=== PATIENT | male | born 1965 | race Caucasian/White ===

== ENCOUNTER 2016-07-09 12:44 | Emergency (ER) | payer MEDICAID ==
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
[2016-07-09] MEDS ORDERED: VALIUM 10 MG/2 ML SYRINGE IV ONE (13:22)
[2016-07-09] MEDS ORDERED: VALIUM 10 MG/2 ML SYRINGE ONE (13:25)
[2016-07-09 14:17] LABS: BASOPHIL % 0.1 % (0.0-0.4); Eosinophil % 1.1 % (0.00-5.0); Lymphocytes % 38.1 % (24.0-44.0); Mean Cell Volume 88.1 fl (78-100); Mean Corpuscular Hemoglobin 29.4 pg (26-32); Monocytes % 9.7 % (0.0-12.0); Platelet Count 255 K/mm3 (150-450); Red Blood Count 4.77 M/mm3 (4.1-5.6); Red Cell Distribution Width 13.9 % (11.5-14.0); White Blood Count 7.2 K/mm3 (4.0-10.5)
[2016-07-09 14:21] LABS: ANION GAP 12.8 MEQ/L (5-15); BLOOD UREA NITROGEN 16 mg/dL (9-20); CHLORIDE 106 mEq/L (98-107); Carbon Dioxide 23.9 mEq/L (21-32); Glucose 113 MG/DL (70-110); Potassium 3.1 mEq/L (3.5-5.1); SODIUM 140 mEq/L (136-145)
[2016-07-09 14:27] LABS: Collection Type VOID
[2016-07-09 14:28] LABS: COMPLETE URINE MICROSCOPIC? YES; Ph 5.5 (5-6)
[2016-07-09] MEDS ORDERED: Sodium Chloride 0.9% 1000 ML 1,000 ML IV STA (14:34)
[2016-07-09] MEDS ORDERED: Sodium Chloride 0.9% 1000 ML 1,000 ML ONE (14:38)
[2016-07-09 14:47] LABS: Mucus MODERATE /HPF (NEGATIVE)
[2016-07-09] MEDS ORDERED: Klor Con 10 MEQ PO ONE ×2 (15:52→16:20)
[2016-07-09 16:50] VITALS: BP 155/83; PULSE 81; O2SAT 97
== END 2016-07-09 16:51 | disposition home or self-care (01) ==
LOC: ED 12:44
DX: F41.9 Anxiety disorder, unspecified (principal); E86.0 Dehydration; E87.6 Hypokalemia
CPT/HCPCS: 36415; 80048; 80307; 81000; 85025; 96360; 96374; 99284; J3360; A9270-GY

== ENCOUNTER 2017-05-19 19:37 | Emergency (ER) | payer OTHER ==
[2017-05-19] MEDS ORDERED: PROVENTIL 2.5 MG/3 ML NEB IH ONE ×2 (20:18→20:22)
[2017-05-19] MEDS ORDERED: solu-MEDROL 125 MG IV ONE (20:18)
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
[2017-05-19] MEDS ORDERED: solu-MEDROL 125 MG ONE (20:27)
[2017-05-19 21:23] LABS: Granulocyte Absolute (ANC) 2.62 (1.4-6.9); Hematocrit 40.6 % (42-50); Hemoglobin 13.4 gm/dl (12.5-18.0); Mean Cell Volume 92.3 fl (78-100); Mean Corpuscular Hemoglobin 30.5 pg (26-32); Mean Platelet Volume 9.4 fl (6-9.5); Platelet Count 151 K/mm3 (150-450); Red Cell Distribution Width 14.6 % (11.5-14.0); White Blood Count 5.8 K/mm3 (4.0-10.5)
[2017-05-19 21:39] LABS: ALBUMIN 2.9 g/dL (3.4-5.0); ALKALINE PHOSPHATASE 261 U/L (46-116); ANION GAP 16.3 MEQ/L (5-15); BLOOD UREA NITROGEN 9 mg/dL (9-20); CHLORIDE 104 mEq/L (98-107); Calcium 8.3 mg/dL (8.5-10.1); Carbon Dioxide 23.1 mEq/L (21-32); Creatinine 1 0.86 mg/dl (0.55-1.30); Glucose 103 MG/DL (70-110); NT PRO BNP 63 pg/ml (0-125); Potassium 3.9 mEq/L (3.5-5.1); SGOT/AST 36 U/L (15-37); SGPT/ALT 55 U/L (12-78); SODIUM 140 mEq/L (136-145); Total Protein 8.1 gm/dL (6.4-8.2)
[2017-05-19 21:50] LABS: INFLUENZA A NEGATIVE (NEGATIVE); INFLUENZA B NEGATIVE (NEGATIVE)
[2017-05-19 21:51] LABS: RESPIRATORY SYNCTIAL VIRUS POSITIVE (Negative)
[2017-05-19 22:02] LABS: BAND 1 % (0.0-2.0); Eosinophil 9 % (0.00-3.0); Lymphocytes 49 % (24-44); Monocyte 1 % (0.0-12.0); Neutrophils 40 % (36.-66.); Platelet Estimate NORMAL (NORMAL); Total Cells Counted 100
[2017-05-19] MEDS ORDERED: Robitussin AC Syrup Unit Dose Cup PO ONE (22:05)
[2017-05-19] MEDS ORDERED: Vibramycin 100 MG PO ONE (22:06)
[2017-05-19 22:08] VITALS: BP 133/87; PULSE 86
[2017-05-19] MEDS ORDERED: Vibramycin 100 MG ONE (22:10)
[2017-05-19] MEDS ORDERED: Robitussin AC Syrup Unit Dose Cup ONE (22:11)
[2017-05-19 22:13] VITALS: O2SAT 96
--- NOTE | 2017-05-20 09:13 | XRAY ---
Exam: CT of the chest without IV contrast from 05/19/2017. CTDI: 17.48 Comparison: CT of the chest with IV contrast from 04/12/2015. Indication: History of bad cough 3 days, had lymph node biopsy last week within lower neck, also had bronchoscopy on same day about a week ago. Patient also has history of testicular carcinoma 6 years ago. Technique: Non-IV contrast axial images were obtained through the chest without IV contrast. Reconstructed coronal and sagittal images were created and reviewed. Findings: The heart size is normal without pericardial effusion. I again see multiple mediastinal lymph nodes within the right paratracheal projection, AP window on the left, just to the left of the chelita, and within the subcarinal projection. The largest lymph node is seen within the subcarinal projection measuring 2.0 cm x 1.5 cm in cross section on axial image #29. In general, the size of the mediastinal lymph nodes has progressed some as compared to 04/12/2015. Correlate with recent lymph node biopsy. I believe there are some mild bilateral perihilar lymph nodes as well, although these are more difficult to discern without the benefit of IV contrast. No abnormal axillary lymphadenopathy is seen. The lung burkett reveal advanced emphysematous changes with some mild scattered bilateral linear scarring. A suture line is seen at the posterior left lung base representing no change. There are some granulomatous calcifications at the posterior margin of the right hilum as well as the posterior right lung base. Prior right lung infiltrate and air-fluid level within an adjacent bulla/bleb have resolved. I currently see no acute infiltrates or suspicious soft tissue lung nodularity. No pneumothorax or pleural effusion is seen. The central airways appear open. The upper abdomen reveals multiple mildly prominent lymph nodes near the root of the mesentery which are about the same or perhaps slightly more prominent as compared to the prior CT study. The adrenal glands appear unremarkable. The spleen is borderline enlarged measuring about 12.7 cm in length on coronal image #100. I believe this represents no significant change. The skeleton reveals no acute fracture or aggressive bone lesion. Lower dorsal kyphosis and moderate diffuse spondylosis within the visualized spine are seen. Impression: 1. Compared to the prior CT study of 04/12/2015, there is mild interval progression of prominent mediastinal and bilateral perihilar lymph nodes, the largest seen within the subcarinal region measuring 2.0 cm x 1.5 cm in cross section on the current study. Lymph nodes near the mesenteric root of the upper abdomen are about the same or perhaps slightly more prominent. 2. I see no other acute process within the chest. 3. However, I again note advanced pulmonary emphysema with some scattered linear scarring within each lung field, a suture line at the posterior left lung base, and several granulomatous calcifications on the right. There is also borderline splenomegaly.
== END 2017-05-19 22:20 | disposition home or self-care (01) ==
LOC: ED 19:37
DX: J40 Bronchitis, not specified as acute or chronic (principal); J21.9 Acute bronchiolitis, unspecified; J44.9 Chronic obstructive pulmonary disease, unspecified; B97.4 Respiratory syncytial virus as the cause of diseases classified elsewhere; Z79.899 Other long term (current) drug therapy
CPT/HCPCS: 36000; 36415; 71250; 80053; 83880; 85025; 87040; 87631; 94640; 99284; J2930; A9270-GY

== ENCOUNTER 2017-06-11 05:51 | Day surgery (SDC) | payer OTHER ==
[2017-06-11] MEDS ORDERED: DIPRIVAN 200 MG/20 ML IV ONE (05:52)
[2017-06-11] MEDS ORDERED: Ketamine HCl 50 MG/ML IV ONE (05:52)
[2017-06-11] MEDS ORDERED: Lactated Ringers 1,000 ML IV SCH (06:00)
[2017-06-11 08:35] VITALS: O2SAT 98
--- NOTE | 2017-06-11 08:53 | OP ---
SURGERY DATE/TIME: 06/11/2017721 PREOPERATIVE DIAGNOSIS: Screening exam. POSTOPERATIVE DIAGNOSIS: Normal colon. PROCEDURE: Colonoscopy. SURGEON: Dr. Coleman. ANESTHESIA: MAC. Medications given by anesthesia department. HISTORY: The patient is a 52 year-old white male presenting now for his first screening colonoscopy. He was appraised of the risks of the procedure including the risk of perforation, phlebitis, untoward reaction to medication, bleeding and missed lesions. The patient verbalized his understanding and desired to have the procedure performed. DESCRIPTION OF PROCEDURE: The patient was given the medications by the anesthesia department. He had continuous pulse oximetry, ECG monitoring, intermittent blood pressure monitoring and tidal CO2 monitoring during the examination. He was placed in the left lateral decubitus position. A digital rectal examination was performed and revealed normal anal sphincter tone, no masses and normal prostate. The flexible Olympus pediatric colonoscope was used to intubate the rectum. A view of the colon was developed sequentially to the cecum. Upon insertion and withdrawal, including a retroflex view in the rectum, no mucosal lesions were encountered. The scope was removed from the patient who tolerated the procedure well and was sent back to OP recovery in good condition. The prep was noted to be fair.
[2017-06-11 09:00] VITALS: BP 143/89; PULSE 67
== END 2017-06-11 08:50 | disposition home or self-care (01) ==
LOC: SDC 05:51
PROVIDERS: ATTEND Family Medicine
PROC: 0DJD8ZZ Inspection of Lower Intestinal Tract, Via Natural or Artificial Opening Endoscopic (ICD-10-PCS; principal; 2017-06-11)
DX: Z12.11 Encounter for screening for malignant neoplasm of colon (principal)
CPT/HCPCS: J2704

== ENCOUNTER 2018-04-16 21:59 | Inpatient (IN) | payer OTHER ==
[2018-04-16] MEDS ORDERED: Sodium Chloride 0.9% 1000 ML 1,000 ML IV STA (22:08)
[2018-04-16] MEDS ORDERED: Sodium Chloride 0.9% 1000 ML 1,000 ML ONE (22:32)
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
[2018-04-16] MEDS ORDERED: Hydromorphone 1 mg/ml Ampule IV ONE (23:16)
[2018-04-16] MEDS ORDERED: Zofran 4 MG/2 ML VIAL IV ONE (23:16)
[2018-04-16] MEDS ORDERED: Zofran 4 MG/2 ML VIAL ONE (23:28)
[2018-04-16] MEDS ORDERED: Hydromorphone 1 mg/ml Ampule ONE (23:28)
[2018-04-17] MEDS ORDERED: ENOXAPARIN SODIUM SQ STA (00:56)
[2018-04-17] MEDS ORDERED: ROCEPHIN 1 Gm-D5w 50 ml Bag** 1 G/50 ML IVPB IV STA (00:56)
[2018-04-17] MEDS ORDERED: Hydromorphone 1 mg/ml Ampule IV ONE ×2 (00:56→02:53)
[2018-04-17] MEDS ORDERED: Hydromorphone 1 mg/ml Ampule ONE ×2 (01:02→02:53)
[2018-04-17 01:03] LABS: BASOPHIL % 0.2 % (0.0-0.4); Basophil (Absolute #) 0.02 (0-0.4); Eosinophil % 0.8 % (0.00-5.0); Eosinophil (Absolute #) 0.09 (0-0.5); Granulocyte Absolute (ANC) 7.61 (1.4-6.9); Granulocytes % 70.6 % (36.0-66.0); Hematocrit 41.1 % (42-50); Hemoglobin 13.7 gm/dl (12.5-18.0); Lymphocyte (Absolute #) 2.42 (1.0-4.6); Lymphocytes % 22.4 % (24.0-44.0); Mean Cell Volume 87.1 fl (78-100); Mean Corpuscular Hgb Concent. 33.3 g/dl (32-36); Mean Platelet Volume 9.5 fl (6-9.5); Monocyte (Absolute #) 0.65 (0.0-1.3); Platelet Count 232 K/mm3 (150-450); Red Blood Count 4.72 M/mm3 (4.1-5.6); Red Cell Distribution Width 14.5 % (11.5-14.0); White Blood Count 10.8 K/mm3 (4.0-10.5)
[2018-04-17] MEDS ORDERED: ROCEPHIN 1 Gm-D5w 50 ml Bag** 1 G/50 ML IVPB IV ONE (01:03)
[2018-04-17] MEDS ORDERED: ENOXAPARIN SODIUM SQ ONE (01:03)
[2018-04-17 01:22] LABS: ALBUMIN 3.7 g/dL (3.5-5.0); ALKALINE PHOSPHATASE 170 U/L (38-126); ANION GAP 14.7 MEQ/L (5-15); BLOOD UREA NITROGEN 20 mg/dL (9-20); CHLORIDE 99 mmol/L (98-107); Calcium 8.3 mg/dL (8.4-10.2); Carbon Dioxide 25 mmol/L (22-30); Creatinine 1 0.79 mg/dL (0.66-1.25); Glucose 112 mg/dL (74-106); NT PRO BNP 45.8 pg/mL (0-900); Potassium 3.3 mmol/L (3.5-5.1); SGOT/AST 18 U/L (17-59); SGPT/ALT 17 U/L (0-50); SODIUM 135 mmol/L (137-145); Total Protein 7.5 g/dL (6.3-8.2)
[2018-04-17] MEDS ORDERED: Zofran 4 MG/2 ML VIAL IV PRN (03:02)
[2018-04-17] MEDS ORDERED: TYLENOL 325 MG PO PRN (03:02)
[2018-04-17] MEDS: Sodium Chloride 0.9% 1000 ML 1,000 ML IV SCH (04:25)
[2018-04-17 06:20] LABS: BASOPHIL % 0.2 % (0.0-0.4); Basophil (Absolute #) 0.02 (0-0.4); Eosinophil % 1.2 % (0.00-5.0); Eosinophil (Absolute #) 0.12 (0-0.5); Granulocyte Absolute (ANC) 5.72 (1.4-6.9); Granulocytes % 57.3 % (36.0-66.0); Hematocrit 42.3 % (42-50); Hemoglobin 14.1 gm/dl (12.5-18.0); Lymphocyte (Absolute #) 3.49 (1.0-4.6); Mean Cell Volume 86.7 fl (78-100); Mean Corpuscular Hemoglobin 28.9 pg (26-32); Mean Corpuscular Hgb Concent. 33.3 g/dl (32-36); Mean Platelet Volume 9.6 fl (6-9.5); Monocyte (Absolute #) 0.63 (0.0-1.3); Monocytes % 6.3 % (0.0-12.0); Platelet Count 255 K/mm3 (150-450); Red Blood Count 4.88 M/mm3 (4.1-5.6); Red Cell Distribution Width 14.5 % (11.5-14.0)
[2018-04-17 06:33] LABS: ALBUMIN 3.9 g/dL (3.5-5.0); ALKALINE PHOSPHATASE 170 U/L (38-126); ANION GAP 15.4 MEQ/L (5-15); BLOOD UREA NITROGEN 17 mg/dL (9-20); CHLORIDE 95 mmol/L (98-107); Calcium 8.3 mg/dL (8.4-10.2); Carbon Dioxide 25 mmol/L (22-30); Creatinine 1 0.78 mg/dL (0.66-1.25); Glucose 115 mg/dL (74-106); Potassium 3.6 mmol/L (3.5-5.1); SGOT/AST 17 U/L (17-59); SGPT/ALT 17 U/L (0-50); SODIUM 132 mmol/L (137-145); Total Protein 7.9 g/dL (6.3-8.2)
[2018-04-17] MEDS: DILAUDID 2 MG INJECTION IV PRN ×5 (07:38→21:29)
--- NOTE | 2018-04-17 07:53 | XRAY ---
Indication: Erythema and swelling. Two-dimensional sonogram and color Doppler imaging of the major venous vessels of the left and right leg was performed. Comparison: None Examination of the left leg demonstrates near occluding DVT in the distal femoral and popliteal veins. No other thrombus seen in the remaining deep venous vessels of the left and right leg including greater saphenous veins. Patent veins demonstrate normal compressibility. Venous waveforms are normal with and without augmentation. Impression: 1. DVT in the distal left femoral and popliteal veins. 2. Right leg negative for DVT. Comment: Preliminary report was given.
--- NOTE | 2018-04-17 07:58 | XRAY ---
Indication: Erythema and swelling. Cellulitis. Two-dimensional sonogram and color Doppler imaging of the major arteries of the left and right leg was performed. Comparison: None Examination of the left leg demonstrates patent common femoral, superficial femoral, popliteal, posterior tibial, and dorsal pedal arteries. Arterial waveforms are multiphasic throughout. Examination of the right leg also demonstrates patent common femoral, superficial femoral, popliteal, posterior tibial, and dorsal pedal arteries. Arterial waveforms are multiphasic throughout. Ankle brachial index portion of the exam not performed due to intolerable pain. Impression: Left and right leg arterial Doppler sonogram negative for critical stenosis/obstruction with normal multiphasic arterial waveforms. Comment: Preliminary report was given.
[2018-04-17] MEDS ORDERED: PHARMACY DOSING REQUIRED: VANCOMYCIN IV ONE (10:25)
[2018-04-17] MEDS: VANCOCIN 1 GM VIAL*** 1.75 GM in Sodium Chloride 0.9% 500 ML 500 ML IV SCH ×2 (11:22→21:29)
[2018-04-17] MEDS: ENOXAPARIN SODIUM SQ SCH (11:22)
[2018-04-17] MEDS: Advair Hfa 115/21 Common canister IH SCH (19:20)
--- NOTE | 2018-04-17 20:31 | XRAY ---
Indication: Elevated d-dimer. Multiple contiguous axial images obtained through the chest using 80 cc Isovue 370 contrast. Comparison: June 01, 2017. There is good opacification of the pulmonary arteries to include the lobar and segmental branches. Again no filling defect or pulmonary embolus. Heart is not enlarged. Aorta is normal in course and caliber. New left arm PICC line. Stable scattered small nonpathologic mediastinal lymph nodes. No pathologic lymphadenopathy. Examination of lung parenchyma again demonstrates diffuse pulmonary emphysema, scattered fibrosis/scarring, left base suture line, and posterior right lower lobe calcified granuloma. Minimal bilateral dependent atelectasis. No new pulmonary mass, infiltrate, or effusion. Bony thorax intact again with minimal degenerative changes throughout the spine. Limited upper abdomen demonstrates stomach markedly food/fluid distended. Stable mild fatty liver. There are again scattered small mesenteric root lymph nodes but smaller than before, largest measuring 11 x 26 mm. Impression: 1. Again negative pulmonary embolus. 2. Stable pulmonary emphysema, left lung postsurgical changes, scattered fibrosis/scarring, and evidence for old granulomatous disease. 3. No new/acute cardiopulmonary abnormalities. 4. Again incidental fatty liver and prominent mesenteric root lymph nodes. Comment: Preliminary interpretation was made by [facility] and no critical discrepancy. CTDI 21.37
--- NOTE | 2018-04-17 20:35 | XRAY ---
Indication: PICC line placement. Comparison: September 01, 2017. Portable chest demonstrates new left arm PICC line with the tip projecting over the SVC. Lungs remain underinflated with bibasilar atelectasis/scarring. Heart is not enlarged. Bony thorax intact again with mild degenerative changes. Impression: New left arm PICC line in good position with again bibasilar atelectasis/scarring. No acute cardiopulmonary abnormalities. Comment: Preliminary interpretation was made by [facility]. No discrepancy.
[2018-04-17] MEDS: ROCEPHIN 1 Gm-D5w 50 ml Bag** 1 G/50 ML IVPB IV SCH (21:30)
[2018-04-17] MEDS: REMERON 30 MG PO SCH (21:31)
[2018-04-17] MEDS ORDERED: Naprosyn 500 MG PO ONE (22:00)
[2018-04-17] MEDS: DOXEPIN HCL PO SCH (22:08)
[2018-04-18] MEDS: DILAUDID 2 MG INJECTION IV PRN ×2 (06:13→20:58)
[2018-04-18] MEDS ORDERED: PROVENTIL Solution 2.5 MG/0.5 ML IH SCH (07:00)
[2018-04-18] MEDS ORDERED: PROVENTIL COMMON CANISTER IH PRN (07:15)
[2018-04-18] MEDS ORDERED: MEDICATION INTERVENTION MC SCH (07:15)
[2018-04-18] MEDS: Spiriva 18 Mcg/Cap Inhaler IH SCH (07:56)
[2018-04-18] MEDS: Advair Hfa 115/21 Common canister IH SCH ×2 (07:56→17:07)
[2018-04-18] MEDS: Sodium Chloride 0.9% 1000 ML 1,000 ML IV SCH (08:39)
--- NOTE | 2018-04-18 09:00 | PCM.NOTE ---
Date and Time: 04/18/1856 Subjective Assessment: Pt still having LE edema and erythema. Legs hurt; he is unable to walk on them he says. Unsure if they're better since admission. - Review of Systems Constitutional: No Fever Skin: Cellulitis Objective Exam General Appearance: mild distress (with exam), alert Neurologic Exam: oriented x 3, cooperative Skin Exam: other (LE erythema distally bilat, R>L. There are dark red/black vesicles approx 4-5cm in diameter on distal LE bilat. pedal pulse easiliy palpable on L, unable to palpate on R. feet are warm bilat. LE ttp throughout.) Respiratory Exam: No normal breath sounds (fair air exchange bilat), No crackles /rales, No rhonchi, No wheezing Cardiovascular Exam: regular rate/rhythm, normal heart sounds, No murmur OBJECTIVE DATA Vital Signs: Vital Signs - 24 hr Temp Pulse Resp BP Pulse Ox 04/18/18 08:02 100 H 18 96 04/18/18 07:26 98.5 F 100 H 18 123/72 97 04/18/18 04:00 17 04/18/18 03:48 98.5 F 103 H 17 124/76 96 04/18/18 00:00 18 04/17/18 23:44 98.3 F 107 H 18 155/68 94 L 04/17/18 20:00 98.6 F 102 H 19 131/74 97 04/17/18 19:22 99 H 18 96 04/17/18 16:00 18 04/17/18 15:57 98.6 F 98 H 18 132/84 96 04/17/18 12:00 18 04/17/18 11:51 97.6 F 93 H 18 121/83 97 04/17/18 09:43 106 H 18 97 Oxygen-Last 24 hours O2 Percentage 2 Liters = 28% O2 Percentage 3 Liters = 32% O2 Percentage 3 Liters = 32% O2 Percentage 3 Liters = 32% O2 Percentage 3 Liters = 32% O2 Percentage 3 Liters = 32% Pain Assessment - Last Documented Pain Intensity 9 Pain Scale Used 0-10 Pain Scale Intake and Output: Intake & Output 04/15/18 04/16/18 04/17/18 04/18/18 11:59 11:59 11:59 11:59 Intake Total 1470 2699 Output Total 500 1525 Balance 970 1174 Weight 99.2 kg 100.5 kg Radiology Exams: Radiology Procedures Category Date Time Status ARTERIAL BILAT LOWER EXTREMITY [US] Stat Exams 04/16/18 22:09 Completed CHEST 1 VIEW (PORTABLE) Stat Exams 04/17/18 14:02 Completed CHEST WITH CONTRAST [CT] Routine Exams 04/17/18 10:25 Completed VENOUS BILATERAL EXTREMITY [US] Stat Exams 04/16/18 22:14 Completed Multi-Disciplinary Progress Notes: Multi-Disciplinary Progress Notes 04/17/18 10:38 Pharmacy Note by Doc Elias Pharmacokinetic dosing service Date: 04/17/18 Time: Objective: Patient: Floor: Age: 52 yo Serum creatinine: 0.78 mg/dL Height: 71 Inches Weight (kg): 99 Diagnosis:CELLULITIS Relevant medical/social history: Cultures and sensitivities: Other labs:VANCOMYCIN TROUGH 04/19/18 Assessment: IBW (kg): 75.30 Dosing wt(kg): 99 Estimated Creatinine clearance (ml/min): 118.0 CRCL method: Cockcroft and Gault using ibw(default). Drug selected: Vancomycin Loading dose (mg): 0 Vd (liters): 74.2 (factor used: 0.75 L/kg) Luis (hr-1): 0.102 Half life ( hrs): 6.80 Recommended dose: 1750 mg Interval: 12 hrs Infusion time (hrs): 1.5 Predicted peak (mcg/mL): 31.0 Predicted trough (mcg/mL): 10.62 Total body weight is being used for vancomycin dosing. Renal function is stable [ ] /unstable [ ] Recommendations: Give Vancomycin 1750 mg q 12 hrs with an expected Cpeak of 31.0 mcg/ml and an expected Ctrough of 10.62 mcg/ml Renal dosing of other antibiotics (review renal dosing of other medications and list guidelines here): Thank you for the consult, will continue to follow. Signature:VIMAL ELIAS R[facility] Initialized on 04/17/18 10:38 - END OF NOTE Assessment/Plan (1) Cellulitis Current Visit: Yes Status: Acute Onset Date: ~04/17/18 Qualifiers: Site of cellulitis: extremity Site of cellulitis of extremity: lower extremity Laterality: unspecified laterality Qualified Code(s): L03.119 - Cellulitis of unspecified part of limb Assessment & Plan: Bilat LE. On day #2 rocephin and vancomycin. PT to consult for the vesicles. Code(s): L03.90 - CELLULITIS, UNSPECIFIED (2) DVT (deep venous thrombosis) Current Visit: Yes Status: Acute Onset Date: ~04/17/18 Qualifiers: Chronicity: acute Laterality: left Assessment & Plan: On lovenox 100mg SQ q12h. Will change to po medication on discharge. Pt still having significant pain. Code(s): I82.409 - ACUTE EMBOLISM AND THOMBOS UNSP DEEP VN UNSP LOWER EXTREMITY (3) Venous stasis dermatitis Current Visit: Yes Status: Acute Onset Date: ~04/17/18 Qualifiers: Laterality: bilateral Qualified Code(s): I87.2 - Venous insufficiency ( chronic) (peripheral) Code(s): I87.2 - VENOUS INSUFFICIENCY (CHRONIC) (PERIPHERAL) (4) COPD (chronic obstructive pulmonary disease) Current Visit: No Status: Chronic Qualifiers: COPD type: unspecified COPD Qualified Code(s): J44.9 - Chronic obstructive pulmonary disease, unspecified Assessment & Plan: On O2 currently. (5) Hepatic cirrhosis due to chronic hepatitis C infection Current Visit: Yes Status: Acute Assessment & Plan: will d/c his tylenol order. Code(s): B18.2 - CHRONIC VIRAL HEPATITIS C; K74.60 - UNSPECIFIED CIRRHOSIS OF LIVER
[2018-04-18] MEDS: ENOXAPARIN SODIUM SQ SCH ×2 (09:49→21:18)
[2018-04-18] MEDS: VANCOCIN 1 GM VIAL*** 1.75 GM in Sodium Chloride 0.9% 500 ML 500 ML IV SCH ×2 (09:49→22:44)
[2018-04-18] MEDS: Oxycontin 10 MG ER PO SCH ×2 (09:49→22:44)
[2018-04-18] MEDS: Naprosyn 500 MG PO SCH (09:49)
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
[2018-04-18] MEDS: REMERON 30 MG PO SCH (21:18)
[2018-04-18] MEDS: DOXEPIN HCL PO SCH (21:18)
[2018-04-18] MEDS ORDERED: LURASIDONE HCL PO SCH (22:00)
[2018-04-18] MEDS: ROCEPHIN 1 Gm-D5w 50 ml Bag** 1 G/50 ML IVPB IV SCH (22:10)
[2018-04-19] MEDS: Advair Hfa 115/21 Common canister IH SCH ×2 (07:03→22:03)
[2018-04-19] MEDS: Spiriva 18 Mcg/Cap Inhaler IH SCH (07:03)
--- NOTE | 2018-04-19 09:07 | PCM.NOTE ---
Date and Time: 04/19/18 09 Subjective Assessment: He is still c/o leg pain, somewhat better with the oxycodone. PT drained the blood blisters yesterday but they have returned. He was not up walking yesterday. Objective Exam General Appearance: no apparent distress, alert Neurologic Exam: oriented x 3, cooperative Skin Exam: warm, other (bilat distal LE with erythema, L>R. There are dark vesicles present, with fluid. quite ttp throughout. Appears moderately edematous bilaterally.) OBJECTIVE DATA Vital Signs: Vital Signs - 24 hr Temp Pulse Resp BP Pulse Ox 04/19/18 08:00 98.5 F 93 H 18 113/63 93 L 04/19/18 04:00 98.5 F 98 H 12 124/68 96 04/19/18 00:00 99.4 F 105 H 12 125/61 95 04/18/18 20:00 98.6 F 96 H 12 149/80 97 04/18/18 17:10 95 H 18 95 04/18/18 16:00 97.8 F 93 H 18 124/78 97 04/18/18 12:00 16 04/18/18 11:57 98.4 F 97 H 18 139/80 99 Oxygen-Last 24 hours O2 Percentage 2 Liters = 28% O2 Percentage 3 Liters = 32% O2 Percentage 3 Liters = 32% O2 Percentage 3 Liters = 32% Pain Assessment - Last Documented Pain Intensity 4 Pain Scale Used [facility] Intake and Output: Intake & Output 04/16/18 04/17/18 04/18/18 04/19/18 11:59 11:59 11:59 11:59 Intake Total 1470 3179 3952 Output Total 500 1525 1200 Balance 970 1654 2752 Weight 99.2 kg 100.5 kg 107.1 kg Radiology Exams: Radiology Procedures Category Date Time Status CHEST 1 VIEW (PORTABLE) Stat Exams 04/17/18 14:02 Completed CHEST WITH CONTRAST [CT] Routine Exams 04/17/18 10:25 Completed Assessment/Plan (1) Cellulitis Current Visit: Yes Status: Acute Onset Date: ~04/17/18 Qualifiers: Site of cellulitis: extremity Site of cellulitis of extremity: lower extremity Laterality: unspecified laterality Qualified Code(s): L03.119 - Cellulitis of unspecified part of limb Assessment & Plan: Still present. On Vancomycin and rocephin day #3; will change the rocephin to levaquin. Code(s): L03.90 - CELLULITIS, UNSPECIFIED (2) DVT (deep venous thrombosis) Current Visit: Yes Status: Acute Onset Date: ~04/17/18 Qualifiers: Chronicity: acute Laterality: left Code(s): I82.409 - ACUTE EMBOLISM AND THOMBOS UNSP DEEP VN UNSP LOWER EXTREMITY (3) Venous stasis dermatitis Current Visit: Yes Status: Acute Onset Date: ~04/17/18 Qualifiers: Laterality: bilateral Qualified Code(s): I87.2 - Venous insufficiency ( chronic) (peripheral) Code(s): I87.2 - VENOUS INSUFFICIENCY (CHRONIC) (PERIPHERAL) (4) COPD (chronic obstructive pulmonary disease) Current Visit: No Status: Chronic Qualifiers: COPD type: unspecified COPD Qualified Code(s): J44.9 - Chronic obstructive pulmonary disease, unspecified Assessment & Plan: He states his breathing is at baseline. (5) Hepatic cirrhosis due to chronic hepatitis C infection Current Visit: Yes Status: Acute Assessment & Plan: He sees Dr. Ortega for Hep C. Code(s): B18.2 - CHRONIC VIRAL HEPATITIS C; K74.60 - UNSPECIFIED CIRRHOSIS OF LIVER
[2018-04-19] MEDS ORDERED: TROUGH DRUG LEVELS IJ ONE (09:30)
[2018-04-19] MEDS: Levofloxacin 500MG/100ML D5W 500 MG/100 ML BAG IV SCH (10:25)
[2018-04-19] MEDS: ENOXAPARIN SODIUM SQ SCH ×3 (10:25→23:16)
[2018-04-19] MEDS: Naprosyn 500 MG PO SCH (10:26)
[2018-04-19] MEDS: Oxycontin 10 MG ER PO SCH ×2 (10:26→23:18)
[2018-04-19] MEDS: VANCOCIN 1 GM VIAL*** 1.75 GM in Sodium Chloride 0.9% 500 ML 500 ML IV SCH ×2 (12:12→23:14)
[2018-04-19] MEDS: DILAUDID 2 MG INJECTION IV PRN ×2 (12:50→19:50)
[2018-04-19] MEDS: Sodium Chloride 0.9% 1000 ML 1,000 ML IV SCH (19:46)
[2018-04-19] MEDS: REMERON 30 MG PO SCH (23:18)
[2018-04-19] MEDS: DOXEPIN HCL PO SCH (23:20)
[2018-04-20] MEDS: DILAUDID 2 MG INJECTION IV PRN ×2 (02:20→23:57)
[2018-04-20] MEDS: Levofloxacin 500MG/100ML D5W 500 MG/100 ML BAG IV SCH (08:17)
[2018-04-20] MEDS: Naprosyn 500 MG PO SCH (08:17)
[2018-04-20] MEDS: ENOXAPARIN SODIUM SQ SCH ×2 (08:18→21:47)
[2018-04-20 08:33] LABS: BASOPHIL % 0.2 % (0.0-0.4); Basophil (Absolute #) 0.01 (0-0.4); Eosinophil (Absolute #) 0.15 (0-0.5); Granulocyte Absolute (ANC) 2.86 (1.4-6.9); Hematocrit 33.6 % (42-50); Hemoglobin 10.4 gm/dl (12.5-18.0); Lymphocyte (Absolute #) 1.65 (1.0-4.6); Lymphocytes % 33.5 % (24.0-44.0); Mean Cell Volume 92.6 fl (78-100); Mean Platelet Volume 9.7 fl (6-9.5); Monocyte (Absolute #) 0.26 (0.0-1.3); Monocytes % 5.3 % (0.0-12.0); Platelet Count 201 K/mm3 (150-450); Red Blood Count 3.63 M/mm3 (4.1-5.6); Red Cell Distribution Width 14.8 % (11.5-14.0); White Blood Count 4.9 K/mm3 (4.0-10.5)
[2018-04-20 08:36] LABS: Mean Corpuscular Hemoglobin 28.6 pg (26-32)
[2018-04-20] MEDS: Oxycontin 10 MG ER PO SCH (09:23)
[2018-04-20] MEDS: VANCOCIN 1 GM VIAL*** 1.75 GM in Sodium Chloride 0.9% 500 ML 500 ML IV SCH ×2 (09:23→21:48)
--- NOTE | 2018-04-20 09:30 | PCM.NOTE ---
Date and Time: 04/20/18924 Subjective Assessment: Still c/o leg pain. Got up just to pivot yesterday and took 2 steps then sat back down. Has not had a BM but thinks if he could sit on the toilet he may have one. Pain meds work for about 1 hour. Objective Exam General Appearance: no apparent distress, alert Neurologic Exam: oriented x 3, cooperative Skin Exam: other (LE wrapped from PT.) Respiratory Exam: diminished breath sounds (fair to good air exchange), wheezing (scattered throughout), No crackles/rales, No rhonchi Cardiovascular Exam: regular rate/rhythm, normal heart sounds, No murmur Gastrointestinal/Abdomen Exam: soft, normal bowel sounds, distention, No tenderness Extremity Exam: pedal edema (bilat) OBJECTIVE DATA Vital Signs: Vital Signs - 24 hr Temp Pulse Resp BP Pulse Ox 04/20/18 08:00 18 04/20/18 07:30 98.1 F 88 18 133/75 94 L 04/20/18 04:00 97.6 F 97 H 18 123/69 95 04/20/18 00:00 98.4 F 91 H 20 148/87 97 04/19/18 23:56 18 04/19/18 22:03 86 18 93 L 04/19/18 20:00 98.4 F 91 H 20 133/77 98 04/19/18 16:00 98.2 F 91 H 18 129/76 99 04/19/18 12:00 18 04/19/18 11:31 98.2 F 102 H 18 127/81 96 Oxygen-Last 24 hours O2 Percentage 2 Liters = 28% O2 Percentage 3 Liters = 32% O2 Percentage 3 Liters = 32% O2 Percentage 3 Liters = 32% O2 Percentage 3 Liters = 32% Pain Assessment - Last Documented Pain Intensity 6 Pain Scale Used 0-10 Pain Scale,FLACC Intake and Output: Intake & Output 04/17/18 04/18/18 04/19/18 04/20/18 11:59 11:59 11:59 11:59 Intake Total 1470 3179 4432 5449 Output Total 500 1525 1600 2010 Balance 970 1654 2832 3439 Weight 99.2 kg 100.5 kg 107.1 kg 111 kg Lab Results: Lab Results-Last 24 Hours 04/19/18 04/20/18 Range/Units 09:47 08:15 WBC 4.9 (4.0-10.5) K/mm3 RBC 3.63 L (4.1-5.6) M/mm3 Hgb 10.4 L (12.5-18.0) gm/dl Hct 33.6 L (42-50) % MCV 92.6 (78-100) fl MCH 28.6 (26-32) pg MCHC 31.0 L (32-36) g/dl RDW 14.8 H (11.5-14.0) % Plt Count 201 (150-450) K/mm3 MPV 9.7 H (6-9.5) fl Gran % 58.0 (36.0-66.0) % Eos # (Auto) 0.15 (0-0.5) Absolute Lymphs (auto) 1.65 (1.0-4.6) Absolute Monos (auto) 0.26 (0.0-1.3) Lymphocytes % 33.5 (24.0-44.0) % Monocytes % 5.3 (0.0-12.0) % Eosinophils % 3.0 (0.00-5.0) % Basophils % 0.2 (0.0-0.4) % Absolute Granulocytes 2.86 (1.4-6.9) Basophils # 0.01 (0-0.4) Vancomycin Trough 13.11 (10-20) ug/mL Radiology Exams: Radiology Procedures Category Date Time Status ECHO W/2D AND DOPPLER [US] Routine Exams 04/19/18 09:50 Taken Multi-Disciplinary Progress Notes: Multi-Disciplinary Progress Notes 04/19/18 17:43 Case Management Note by Mimi Bell S/W PT ABOUT ANY NEEDS HE MIGHT HAVE AT D/C. DISCUSSED POSSIBLE NEED FOR [facility]G WOUNDS. GIVEN LIST OF PROVIDERS AVAILABLE IN THE AREA. WILL CONT. TO FOLLOW. Initialized on 04/19/18 17:43 - END OF NOTE Assessment/Plan (1) Cellulitis Current Visit: Yes Status: Acute Onset Date: ~04/17/18 Qualifiers: Site of cellulitis: extremity Site of cellulitis of extremity: lower extremity Laterality: unspecified laterality Qualified Code(s): L03.119 - Cellulitis of unspecified part of limb Assessment & Plan: added levaquin yesterday. also on vancomycin day #4. Add IR oxycodone for his pain. No tylenol. Code(s): L03.90 - CELLULITIS, UNSPECIFIED (2) DVT (deep venous thrombosis) Current Visit: Yes Status: Acute Onset Date: ~04/17/18 Qualifiers: Chronicity: acute Laterality: left Assessment & Plan: on lovenox 1mg/kg SQ q12h now. Will change to po when he is closer to discharge. Code(s): I82.409 - ACUTE EMBOLISM AND THOMBOS UNSP DEEP VN UNSP LOWER EXTREMITY (3) Venous stasis dermatitis Current Visit: Yes Status: Acute Onset Date: ~04/17/18 Qualifiers: Laterality: bilateral Qualified Code(s): I87.2 - Venous insufficiency ( chronic) (peripheral) Code(s): I87.2 - VENOUS INSUFFICIENCY (CHRONIC) (PERIPHERAL) (4) COPD (chronic obstructive pulmonary disease) Current Visit: No Status: Chronic Qualifiers: COPD type: unspecified COPD Qualified Code(s): J44.9 - Chronic obstructive pulmonary disease, unspecified Assessment & Plan: pt notes he is at baseline. (5) Hepatic cirrhosis due to chronic hepatitis C infection Current Visit: Yes Status: Acute Code(s): B18.2 - CHRONIC VIRAL HEPATITIS C ; K74.60 - UNSPECIFIED CIRRHOSIS OF LIVER
[2018-04-20 09:48] LABS: ANION GAP 8.8 MEQ/L (5-15); BLOOD UREA NITROGEN 10 mg/dL (9-20); CHLORIDE 103 mmol/L (98-107); Carbon Dioxide 28 mmol/L (22-30); Creatinine 1 0.77 mg/dL (0.66-1.25); Glucose 126 mg/dL (74-106); Potassium 3.8 mmol/L (3.5-5.1); SODIUM 135 mmol/L (137-145)
[2018-04-20] MEDS ORDERED: Oxy-IR 5 MG PO SCH ×2 (10:00→13:00)
[2018-04-20] MEDS: Nicoderm CQ 21 MG TOP SCH (10:02)
[2018-04-20] MEDS ORDERED: Oxy-IR 5 MG PO PRN (10:30)
[2018-04-20] MEDS: Advair Hfa 115/21 Common canister IH SCH ×2 (10:34→17:47)
[2018-04-20] MEDS: Spiriva 18 Mcg/Cap Inhaler IH SCH (10:35)
[2018-04-20] MEDS: Sodium Chloride 0.9% 1000 ML 1,000 ML IV SCH (15:09)
[2018-04-20] MEDS: DOXEPIN HCL PO SCH (21:47)
[2018-04-20] MEDS: REMERON 30 MG PO SCH (21:48)
[2018-04-20] MEDS ORDERED: Oxycontin 20 MG ER PO SCH (22:00)
[2018-04-21] MEDS: Sodium Chloride 0.9% 1000 ML 1,000 ML IV SCH ×2 (04:06→22:05)
[2018-04-21] MEDS: Advair Hfa 115/21 Common canister IH SCH ×2 (07:08→17:29)
[2018-04-21] MEDS: Spiriva 18 Mcg/Cap Inhaler IH SCH (07:08)
[2018-04-21] MEDS ORDERED: NEURONTIN 300 MG PO ONE (08:40)
[2018-04-21] MEDS ORDERED: Colace 100 MG PO PRN (08:41)
--- NOTE | 2018-04-21 08:46 | PCM.NOTE ---
Date and Time: 04/21/18 08 Subjective Assessment: He is still having leg pain; the oxycodone doesn't help "at all" - he states the dilaudid only helps a little bit. He did get out of bed to the bathroom yesterday but still unable to have a BM. Leg pain currently 09/28. - Review of Systems Constitutional: No Fever Musculoskeletal: Other (leg/foot pain) Skin: Cellulitis Objective Exam General Appearance: no apparent distress, alert Neurologic Exam: oriented x 3, cooperative Skin Exam: other (bilat LE wiht generalized mod edema. There are dark macules scattered on LE, R>L. There are fewer areas of vesicles with decreased fluid. mild erythema distally.) OBJECTIVE DATA Vital Signs: Vital Signs - 24 hr Temp Pulse Resp BP Pulse Ox 04/21/18 07:29 98.1 F 91 H 16 128/69 96 04/21/18 07:25 89 14 96 04/21/18 04:00 97.7 F 94 H 18 124/70 96 04/21/18 00:00 97.9 F 95 H 18 135/80 97 04/20/18 20:45 96 04/20/18 20:00 97.5 F 86 17 133/77 97 04/20/18 17:48 82 18 96 04/20/18 16:00 98.6 F 84 18 127/78 97 04/20/18 12:00 98.4 F 90 18 152/88 94 L 04/20/18 10:36 88 18 94 L Oxygen-Last 24 hours O2 Percentage 3 Liters = 32% O2 Percentage 3 Liters = 32% O2 Percentage 3 Liters = 32% O2 Percentage 3 Liters = 32% O2 Percentage 3 Liters = 32% O2 Percentage 3 Liters = 32% Pain Assessment - Last Documented Pain Intensity 5 Pain Scale Used 0-10 Pain Scale,FLACC Intake and Output: Intake & Output 04/18/18 04/19/18 04/20/18 04/21/18 11:59 11:59 11:59 11:59 Intake Total 3935 4451 5435 3812 Output Total 1525 1600 2010 1225 Balance 1654 2832 3439 2587 Weight 100.5 kg 107.1 kg 111 kg 112.1 kg Lab Results: Lab Results-Last 24 Hours 04/20/18 Range/Units 08:15 Sodium 135 L (137-145) mmol/L Potassium 3.8 (3.5-5.1) mmol/L Chloride 103 (98-107) mmol/L Carbon Dioxide 28 (22-30) mmol/L Anion Gap 8.8 (5-15) MEQ/L BUN 10 (9-20) mg/dL Creatinine 0.77 (0.66-1.25) mg/dL Estimated GFR > 60.0 ML/MIN Glucose 126 H (74-106) mg/dL Calcium 8.0 L (8.4-10.2) mg/dL Radiology Exams: Radiology Procedures Category Date Time Status ECHO W/2D AND DOPPLER [US] Routine Exams 04/19/18 09:50 Taken Multi-Disciplinary Progress Notes: Multi-Disciplinary Progress Notes 04/20/18 15:05 Physical Therapy Note by Sherry Mishra LESIONS BOTH LEGS NOW BEGINNING TO DRY. LIGHT COMPRESSION DRESSING TO BOTH LEGS HELPFUL OVERNIGHT. TODAY HAVE KEPT LEGS GREASED WITH BARRIER OINTMENT TO AID SLOUGHING OF NON-VIABLE EPIDERMIS TO AVOID CREATING OPEN WOUNDS WITH AGGRESSIVE MECHANICAL DEBRIDEMENT. LEGS ARE SLOT OPERATIONS MANAGER WITH PALPATION BUT LESS WARM TO TOUCH, AND ERYTHEMA IS DIMINISHED. HOPEFUL TO BE ABLE TO APPLY LAYERED COMPRESSION DRESSING TOMORROW THAT PATIENT CAN TOLERATE AND THAT COULD STAY IN PLACE 1-3 DAYS. Initialized on 04/20/18 15:05 - END OF NOTE Assessment/Plan (1) Cellulitis Current Visit: Yes Status: Acute Onset Date: ~04/17/18 Qualifiers: Site of cellulitis: extremity Site of cellulitis of extremity: lower extremity Laterality: unspecified laterality Qualified Code(s): L03.119 - Cellulitis of unspecified part of limb Assessment & Plan: I think the cellulitis is gradually improving. on Vancomycin day #5 and levaquin day #3. Code(s): L03.90 - CELLULITIS, UNSPECIFIED (2) DVT (deep venous thrombosis) Current Visit: Yes Status: Acute Onset Date: ~04/17/18 Qualifiers: Chronicity: acute Laterality: left Assessment & Plan: on lovenox 1mg/kg SQ BID Code(s): I82.409 - ACUTE EMBOLISM AND THOMBOS UNSP DEEP VN UNSP LOWER EXTREMITY (3) Venous stasis dermatitis Current Visit: Yes Status: Acute Onset Date: ~04/17/18 Qualifiers: Laterality: bilateral Qualified Code(s): I87.2 - Venous insufficiency ( chronic) (peripheral) Code(s): I87.2 - VENOUS INSUFFICIENCY (CHRONIC) (PERIPHERAL) (4) COPD (chronic obstructive pulmonary disease) Current Visit: No Status: Chronic Qualifiers: COPD type: unspecified COPD Qualified Code(s): J44.9 - Chronic obstructive pulmonary disease, unspecified (5) Hepatic cirrhosis due to chronic hepatitis C infection Current Visit: Yes Status: Acute Code(s): B18.2 - CHRONIC VIRAL HEPATITIS C ; K74.60 - UNSPECIFIED CIRRHOSIS OF LIVER (6) Leg pain Current Visit: Yes Status: Acute Qualifiers: Laterality: bilateral Qualified Code(s): M79.604 - Pain in right leg; M79.605 - Pain in left leg Assessment & Plan: could be nerve pain; start gabapentin and stop oxycodone.
[2018-04-21] MEDS: Naprosyn 500 MG PO SCH (09:34)
[2018-04-21] MEDS: ENOXAPARIN SODIUM SQ SCH ×2 (09:34→22:09)
[2018-04-21] MEDS: Miralax Powder 17GM PACKET PO SCH (09:34)
[2018-04-21] MEDS: Nicoderm CQ 21 MG TOP SCH (09:34)
[2018-04-21] MEDS: DILAUDID 2 MG INJECTION IV PRN ×4 (09:34→22:48)
[2018-04-21] MEDS: Levofloxacin 500MG/100ML D5W 500 MG/100 ML BAG IV SCH (09:35)
[2018-04-21] MEDS: VANCOCIN 1 GM VIAL*** 1.75 GM in Sodium Chloride 0.9% 500 ML 500 ML IV SCH ×2 (11:25→22:48)
--- NOTE | 2018-04-21 11:28 | ECHO ---
DATE OF PROCEDURE: 04/19/2018 CLINICAL INFORMATION: Lower extremity edema. The M-mode 2D, and Doppler echocardiogram including color flow Doppler shows the left ventricle is normal in size at 5.4 cm. The apex is not well visualized secondary to poor apical window. The septal wall thickness is increased at 1.5 cm. The left ventricular posterior wall thickness is increased at 1.6 cm. There is accentuated contractility of the left ventricle. The ejection fraction is calculated to be 85%. The right ventricle is grossly normal. The left atrium is borderline dilated at 4.1 cm. The interatrial septum is intact. The right atrium is normal. The aortic valve opens well and is trileaflet. The mitral valve is grossly normal. The tricuspid valve is not well visualized. The pulmonic valve is not well visualized. The aortic root is normal at 3.2 cm. There is no pericardial effusion present. IMPRESSION: 1) ACCENTUATED CONTRACTILITY OF THE LEFT VENTRICLE. 2) BORDERLINE DILATED LEFT ATRIUM. 3) MILD TO MODERATE CONCENTRIC LEFT VENTRICULAR HYPERTROPHY.
[2018-04-21] MEDS: Protonix 20MG Tablet PO SCH (18:54)
[2018-04-21] MEDS: REMERON 30 MG PO SCH (22:08)
[2018-04-21] MEDS: DOXEPIN HCL PO SCH (22:09)
[2018-04-22] MEDS: DILAUDID 2 MG INJECTION IV PRN ×4 (03:33→23:48)
[2018-04-22] MEDS: Advair Hfa 115/21 Common canister IH SCH ×2 (07:03→19:47)
[2018-04-22] MEDS: Spiriva 18 Mcg/Cap Inhaler IH SCH (07:05)
[2018-04-22] MEDS ORDERED: Dulcolax 10 MG SUPP PR PRN (08:53)
[2018-04-22] MEDS ORDERED: TROUGH DRUG LEVELS IJ ONE (09:30)
[2018-04-22] MEDS: Levofloxacin 500MG/100ML D5W 500 MG/100 ML BAG IV SCH (09:52)
[2018-04-22] MEDS: Nicoderm CQ 21 MG TOP SCH (09:52)
[2018-04-22] MEDS: ENOXAPARIN SODIUM SQ SCH ×2 (09:52→22:52)
[2018-04-22] MEDS: Miralax Powder 17GM PACKET PO SCH (09:53)
[2018-04-22] MEDS: Naprosyn 500 MG PO SCH (09:54)
[2018-04-22] MEDS: Protonix 20MG Tablet PO SCH (09:54)
[2018-04-22] MEDS ORDERED: MORPHINE SULFATE 10 MG/ML IV PRN (10:14)
[2018-04-22] MEDS: VANCOCIN 1 GM VIAL*** 1.75 GM in Sodium Chloride 0.9% 500 ML 500 ML IV SCH ×2 (11:31→22:58)
--- NOTE | 2018-04-22 15:29 | PCM.NOTE ---
Date and Time: 04/22/18 1524 Subjective Assessment: Pt had a good night per nursing, was up to bathroom this morning. Legs had been re-wrapped yesterday by PT. He started neurontin 300mg once daily yesterday but he was unaware that he took a new pill (we discussed it yesterday) . He tells me this morning that it's been > 4 hours since his last dilaudid dose and the pain is 8/10 in his legs. He is open to going to [facility] on discharge. - Review of Systems Constitutional: No Fever Musculoskeletal: Other (leg pain) Objective Exam General Appearance: no apparent distress, alert Neurologic Exam: oriented x 3, cooperative Skin Exam: normal color, warm, dry, other (however, LE are wrapped bilat), No rash Respiratory Exam: lungs clear, wheezing (scattered, throughout), other (O2 per NC), No crackles/rales, No rhonchi Cardiovascular Exam: regular rate/rhythm, normal heart sounds, No tachycardia Back Exam: normal inspection, No rash OBJECTIVE DATA Vital Signs: Vital Signs - 24 hr Temp Pulse Resp BP Pulse Ox 04/22/18 12:00 98 F 95 H 20 132/73 94 L 04/22/18 08:00 18 04/22/18 07:45 97.7 F 96 H 18 141/73 95 04/22/18 07:05 94 H 18 95 04/22/18 04:00 98.5 F 102 H 18 119/80 95 04/21/18 23:48 98.3 F 93 H 20 119/61 95 04/21/18 23:37 18 04/21/18 20:00 97.9 F 88 18 126/72 96 04/21/18 17:31 83 20 96 04/21/18 16:00 97.8 F 89 22 140/89 95 Oxygen-Last 24 hours O2 Percentage 3 Liters = 32% O2 Percentage 3 Liters = 32% O2 Percentage 3 Liters = 32% O2 Percentage 3 Liters = 32% O2 Percentage 3 Liters = 32% O2 Percentage 3 Liters = 32% O2 Percentage 3 Liters = 32% Pain Assessment - Last Documented Pain Intensity 8 Pain Scale Used 0-10 Pain Scale Intake and Output: Intake & Output 04/20/18 04/21/18 04/22/18 04/23/18 11:59 11:59 11:59 11:59 Intake Total 5449 4052 4566 480 Output Total 2009 1949 2850 675 Balance 3439 2102 1716 -195 Weight 111 kg 112.1 kg 114.1 kg Lab Results: Lab Results-Last 24 Hours 04/22/18 Range/Units 09:40 Vancomycin Trough 12.73 (10-20) ug/mL Multi-Disciplinary Progress Notes: Multi-Disciplinary Progress Notes 04/22/18 08:07 Case Management Note by Brooke Bella LEVEL I WEB APPROVED, NO LEVEL II REQUIRED. LOC STILL ON QUEUE, CANNOT GO TO A FACILITY UNTIL THOSE HAVE BEEN APPROVED. Initialized on 04/22/18 08:07 - END OF NOTE 04/21/18 17:31 Physical Therapy Note by Sherry Mishra WAS ABLE TO APPLY LAYERED COMPRESSION DRESSINGS TO BOTH LE'S THIS A.M. WILL RE- ASSESS STATUS TOMORROW A.M. Initialized on 04/21/18 17:31 - END OF NOTE Assessment/Plan (1) Cellulitis Current Visit: Yes Status: Acute Onset Date: ~04/17/18 Qualifiers: Site of cellulitis: extremity Site of cellulitis of extremity: lower extremity Laterality: unspecified laterality Qualified Code(s): L03.119 - Cellulitis of unspecified part of limb Assessment & Plan: He is on day #6 of vancomycin and day #4 of levaquin. PT has been wrapping the legs. His days are up tomorrow; he is open to going to [facility] so discharge planning is calling to see where he can be placed (prefers [facility]). If that does not work, he may need to be discharged to home with home health. However, he is not walking much due to leg pain so would be much more appropriate at [facility]. My plan would be to discharge to [facility] on po levaquin, 500mg daily x 10d (14d total). Would also discharge on po blood thinner; discharge planning is seeing which thinners may be covered in the event he ends up going home (if goes to [facility], would send home on Eliquis 10mg 1 po BID x 1d (day #7 of blood thinner), then 5mg po BID. I have written an rx for oral morphine for him to try upon discharge (morphine sulfate IR 15mg 1 po QID prn, #16). Pain killers have been an issue since he cannot take tylenol due to his Hep C/cirrhosis. I tried oxycontin but his pain was persistent and he stated they didn't work at all. He will have to have close follow up if he is discharged to home so that he can get more pain medicine as appropriate. Code(s): L03.90 - CELLULITIS, UNSPECIFIED (2) DVT (deep venous thrombosis) Current Visit: Yes Status: Acute Onset Date: ~04/17/18 Qualifiers: Chronicity: acute Laterality: left Code(s): I82.409 - ACUTE EMBOLISM AND THOMBOS UNSP DEEP VN UNSP LOWER EXTREMITY (3) Venous stasis dermatitis Current Visit: Yes Status: Acute Onset Date: ~04/17/18 Qualifiers: Laterality: bilateral Qualified Code(s): I87.2 - Venous insufficiency ( chronic) (peripheral) Code(s): I87.2 - VENOUS INSUFFICIENCY (CHRONIC) (PERIPHERAL) (4) COPD (chronic obstructive pulmonary disease) Current Visit: No Status: Chronic Qualifiers: COPD type: unspecified COPD Qualified Code(s): J44.9 - Chronic obstructive pulmonary disease, unspecified Assessment & Plan: He has stated throughout his stay that his breathing is at baseline. He does have some wheezes today. on home O2. (5) Hepatic cirrhosis due to chronic hepatitis C infection Current Visit: Yes Status: Chronic Assessment & Plan: Sees Dr. Ortega. Code(s): B18.2 - CHRONIC VIRAL HEPATITIS C; K74.60 - UNSPECIFIED CIRRHOSIS OF LIVER (6) Leg pain Current Visit: Yes Status: Acute Qualifiers: Laterality: bilateral Qualified Code(s): M79.604 - Pain in right leg; M79.605 - Pain in left leg
[2018-04-22] MEDS: PROVENTIL 2.5 MG/3 ML NEB IH PRN (19:47)
[2018-04-22] MEDS: Sodium Chloride 0.9% 1000 ML 1,000 ML IV SCH (19:53)
[2018-04-22] MEDS: DOXEPIN HCL PO SCH (22:51)
[2018-04-22] MEDS: REMERON 30 MG PO SCH (22:52)
[2018-04-23] MEDS: DILAUDID 2 MG INJECTION IV PRN ×4 (06:20→21:12)
[2018-04-23] MEDS: Spiriva 18 Mcg/Cap Inhaler IH SCH (07:52)
[2018-04-23] MEDS: Advair Hfa 115/21 Common canister IH SCH ×2 (07:52→21:52)
[2018-04-23] MEDS: Protonix 20MG Tablet PO SCH (10:24)
[2018-04-23] MEDS: Miralax Powder 17GM PACKET PO SCH (10:24)
[2018-04-23] MEDS: Levofloxacin 500MG/100ML D5W 500 MG/100 ML BAG IV SCH (10:24)
[2018-04-23] MEDS: Naprosyn 500 MG PO SCH (10:24)
[2018-04-23] MEDS: ENOXAPARIN SODIUM SQ SCH ×2 (10:24→21:12)
[2018-04-23] MEDS: Nicoderm CQ 21 MG TOP SCH (10:25)
[2018-04-23] MEDS ORDERED: CITROMA 296 ML PO PRN (11:12)
[2018-04-23] MEDS: VANCOCIN 1 GM VIAL*** 1.75 GM in Sodium Chloride 0.9% 500 ML 500 ML IV SCH ×2 (11:29→21:13)
--- NOTE | 2018-04-23 11:39 | PCM.NOTE ---
Date and Time: 04/23/18 1114 Subjective Assessment: Patient reports no stool x 2 weeks. He states his abdomen is always distended. He states his leg pain started with the blood clot and both legs are infected. Patient has history of Hep C with type 1a diagnosed 08/04/17. Dr. Philippe's note says he has been seen by Dr. Ortega but it is unclear if this has been treated with antivirals at this time. - Review of Systems Constitutional: Other (Patient reports leg pain) Cardiac: No Symptoms Abdominal/Gastrointestinal: No Symptoms Genitourinary Symptoms: No Symptoms Musculoskeletal: Other (severe leg pain) Skin: Other (rash on legs) Additional Findings: ROS limited as patient asking for pain medication for his legs. Objective Exam General Appearance: mild distress, other (distress from pain in legs) Neurologic Exam: alert, cooperative, normal mood/affect Skin Exam: other (bilat legs wrapped from feet to below knees) Respiratory Exam: normal breath sounds, lungs clear, No crackles/rales, No rhonchi, No wheezing Cardiovascular Exam: regular rate/rhythm, normal heart sounds, No murmur, No friction rub, No gallop Gastrointestinal/Abdomen Exam: soft, normal bowel sounds, distention, No tenderness, No mass, No guarding OBJECTIVE DATA Vital Signs: Vital Signs - 24 hr Temp Pulse Resp BP Pulse Ox 04/23/18 08:02 82 18 96 04/23/18 08:00 97.7 F 82 18 154/85 96 04/23/18 04:05 98.7 F 90 16 139/90 97 04/23/18 00:17 98.0 F 96 H 20 149/102 97 04/23/18 00:00 20 04/22/18 20:00 97.8 F 96 H 20 139/88 96 04/22/18 19:47 91 H 18 93 L 04/22/18 16:00 88 17 144/85 94 L 04/22/18 12:00 98 F 95 H 20 132/73 94 L Oxygen-Last 24 hours O2 Percentage 3 Liters = 32% O2 Percentage 3 Liters = 32% O2 Percentage 3 Liters = 32% O2 Percentage 3 Liters = 32% O2 Percentage 3 Liters = 32% O2 Percentage 3 Liters = 32% Pain Assessment - Last Documented Pain Intensity 8 Pain Scale Used 0-10 Pain Scale Intake and Output: Intake & Output 04/21/18 04/22/18 04/23/18 04/24/18 06:59 06:59 06:59 06:59 Intake Total 3812 3103 5659 Output Total 1662 6982 4000 Balance 6810 650 0007 Weight 112.1 kg 114.1 kg 113.1 kg Multi-Disciplinary Progress Notes: Multi-Disciplinary Progress Notes 04/22/18 16:48 Case Management Note by Mimi Bell S/W DR. PHILIPPE ABOUT THE POSSIBILITY OF PT GOING HOME W/ [facility] TODAY. SHE STATED THAT SHE WOULD BE MORE COMFORTABLE IF WE COULD WAIT UNTIL WEDNESDAY TO BE BETTER PREPARED TO MEET ALL OF THE PT'S NEEDS. WE ARE STILL WAITING ON A FAX FROM DR. OTTO'S OFFICE SO THAT HIS PASSR PAPERS CAN BE COMPLETED. Initialized on 04/22/18 16:48 - END OF NOTE 04/22/18 16:41 Case Management Note by Mimi Bell STAFF FROM [facility] WERE HERE TO ASSESS THE PT. THEY STATED THAT THEIR FINANCIAL STAFF ARE GONE FOR THE WEEK AND WILL NOT BE BACK UNTIL WEDNESDAY SO DO NOT KNOW YET IF PT'S REHAB STAY AT [place] WOULD BE COVERED. Initialized on 04/22/18 16:41 - END OF NOTE 04/22/18 16:39 Case Management Note by Mimi Bell PX FOR ELEQUIS 10MG BID X 1 DAY, THEN 5MG BID QD CALLED INTO [facility] FOR DR. PHILIPPE. Initialized on 04/22/18 16:39 - END OF NOTE 04/22/18 16:03 Case Management Note by Brooke Bella Addendum entered by Brooke Bella 04/22/18 16:07: HEART RATE STILL ELEVATED AT 95 - 100, NO TEMP. B/P WNL. WBC NORMALIZED. Original Note: MR DENNIS ON DAY 6 OF VANC IV Q 12 HOURS AND DAY 4 OF LEVAQUIN IV DAILY. PHYSICAL THERAPY/WOUND CARE HAS BEEN WRAPPING THE LEGS, PAIN LEVEL STILL AT 8/10 , ON DILAUDID IV Q4H, CONT WHEEZING AND NEBS. WILL SEND FURTHER CLINICALS TO [facility] TO REQUEST MORE DAYS ACUTE TREATMENT PER MD. Initialized on 04/22/18 16:03 - END OF NOTE 04/22/18 15:54 Physical Therapy Note by Sherry Mishra PATIENT WAS ABLE TO AMBULATE IN [place] TODAY WITH ROLLER WALKER AND ARM HELD ASSIST +1 - APPROX 80'. IS TOLERATING UNNA BOOT COMPRESSION DRESSINGS - STATES HE IS AGREEABLE TO LEAVING THEM ON OVER THE WEEKEND. DRESSINGS SHOW NO SIGN OF DRAINAGE. HOPEFUL FOR IMPROVED EPIDERMAL SKIN CONDITION AFTER BARRIER OINTMENT AND ZINC WRAP CONDITIONING TX OVER 3 DAY PERIOD..... SHOULD THEN EASILY SLOUGH INJURED EPIDERMIS WITHOUT RAW TISSUE EXPOSURE. Initialized on 04/22/18 15:54 - END OF NOTE Assessment/Plan (1) Vasculitis Current Visit: Yes Status: Acute Assessment & Plan: Picture in his chart from 04/17/18 is very concerning for a vasculitis. He has history of Hep C which can be associated with leukocytoclastic vasculitis and mixed cryoglobulinemia syndrome. Will send off blood for cryoglobulins, complement C3 and C4 as well as CATALINO and Rheumatoid factor. Will try to obtain Dr. Ortega's records from his Hep C treatment. If testing does show vasculitis caused by cryoglobulinemia, may benefit from treatment for Hep C acutely or transfer to tertiary care center for immunosupression. He had arterial dopplers that were negative on admission. Will ask the nurses/PT to take more pictures of his legs when these are undressed. Will also check UA for hematuria and proteinuria. Will also check for HIV as this can also be associated with cryoglobulinemia. Code(s): I77.6 - ARTERITIS, UNSPECIFIED (2) DVT (deep venous thrombosis) Current Visit: Yes Status: Acute Onset Date: ~04/17/18 Qualifiers: Affected thrombotic vein of extremity: femoral Chronicity: acute Laterality: left Assessment & Plan: Continue lovenox at anticoagulation doses. Code(s): I82.409 - ACUTE EMBOLISM AND THOMBOS UNSP DEEP VN UNSP LOWER EXTREMITY (3) Cellulitis Current Visit: Yes Status: Acute Onset Date: ~04/17/18 Qualifiers: Site of cellulitis: extremity Site of cellulitis of extremity: lower extremity Laterality: unspecified laterality Qualified Code(s): L03.119 - Cellulitis of unspecified part of limb Assessment & Plan: Patient may have overlying cellulitis of vasculitis so will continue IV antibiotics at this time. Code(s): L03.90 - CELLULITIS, UNSPECIFIED (4) COPD (chronic obstructive pulmonary disease) Current Visit: No Status: Chronic Qualifiers: COPD type: unspecified COPD Qualified Code(s): J44.9 - Chronic obstructive pulmonary disease, unspecified (5) Constipation Current Visit: Yes Status: Acute Assessment & Plan: Start miralax scheduled. Schedule colace. Magnesium citrate prn today and also has suppository ordered as needed. Most likely due to IV pain medication. Code(s): K59.00 - CONSTIPATION, UNSPECIFIED
[2018-04-23] MEDS: Sodium Chloride 0.9% 1000 ML 1,000 ML IV SCH (13:27)
[2018-04-23 16:45] LABS: Appearance CLEAR (CLEAR); Bilirubin NEGATIVE (NEGATIVE); Blood SMALL Ery/ul (0-5); Glucose NEGATIVE (NEGATIVE); Ketones NEGATIVE (NEGATIVE); Leukocyte Esterase NEGATIVE (NEGATIVE); Mucus SLIGHT /HPF (NEGATIVE); Nitrite NEGATIVE (NEGATIVE); Protein,Urine Dip NEGATIVE (Negative); Specific Gravity 1.011 (1.005-1.025); Urobilinogen NEGATIVE mg/dL (0-1)
[2018-04-23] MEDS: REMERON 30 MG PO SCH (21:12)
[2018-04-23] MEDS: Colace 100 MG PO SCH (21:13)
[2018-04-23] MEDS: DOXEPIN HCL PO SCH (21:13)
[2018-04-24] MEDS: DILAUDID 2 MG INJECTION IV PRN ×6 (03:46→23:55)
[2018-04-24] MEDS: Advair Hfa 115/21 Common canister IH SCH ×2 (08:42→19:16)
[2018-04-24] MEDS: Spiriva 18 Mcg/Cap Inhaler IH SCH (08:43)
[2018-04-24] MEDS: Sodium Chloride 0.9% 1000 ML 1,000 ML IV SCH (09:17)
[2018-04-24] MEDS: Levofloxacin 500MG/100ML D5W 500 MG/100 ML BAG IV SCH (09:20)
[2018-04-24] MEDS: Nicoderm CQ 21 MG TOP SCH (09:20)
[2018-04-24] MEDS: Colace 100 MG PO SCH ×2 (09:20→21:45)
[2018-04-24] MEDS: Protonix 20MG Tablet PO SCH (09:22)
[2018-04-24] MEDS: ENOXAPARIN SODIUM SQ SCH ×2 (09:22→21:46)
[2018-04-24] MEDS: Miralax Powder 17GM PACKET PO SCH (09:22)
[2018-04-24] MEDS: VANCOCIN 1 GM VIAL*** 1.75 GM in Sodium Chloride 0.9% 500 ML 500 ML IV SCH ×2 (10:17→21:47)
[2018-04-24] MEDS: Naprosyn 500 MG PO SCH (10:17)
[2018-04-24] MEDS ORDERED: Colace 100 MG PO ONE (11:11)
--- NOTE | 2018-04-24 11:26 | PCM.NOTE ---
Date and Time: 04/24/18 1120 Subjective Assessment: He reports his leg pain started one week before he presented to the hospital when the purple/black discoloration of both of his legs started. He reports the pain is worse in his feet and toes and ankles. He reports he has Hep C and has been unable to obtain treatment for this although he has tried for over a year. He reports a stool yesterday and today after magnesium citrate was given yesterday. He denies any shortness of breath or chest pain. Nursing notes say he was able to ambulate in the [place] yesterday. - Review of Systems Constitutional: No Symptoms Eyes: No Symptoms Ears, Nose, & Throat: No Symptoms Respiratory: No Symptoms Cardiac: No Symptoms Abdominal/Gastrointestinal: No Symptoms Genitourinary Symptoms: No Symptoms Musculoskeletal: Other (feet and leg pain; leg wounds wrapped) Objective Exam General Appearance: no apparent distress, alert, obese Neurologic Exam: alert, cooperative, normal mood/affect Skin Exam: normal color, warm, dry, other (lower legs wrapped from toes to knees ) Respiratory Exam: normal breath sounds, lungs clear, No crackles/rales, No rhonchi, No wheezing Cardiovascular Exam: regular rate/rhythm, normal heart sounds, No murmur, No friction rub, No gallop Gastrointestinal/Abdomen Exam: soft, normal bowel sounds, No tenderness, No distention, No mass, No guarding Extremity Exam: other (no c/c/e) OBJECTIVE DATA Vital Signs: Vital Signs - 24 hr Temp Pulse Resp BP Pulse Ox 04/24/18 09:01 88 18 96 04/24/18 08:25 18 04/24/18 08:00 98.6 F 85 18 135/98 96 04/24/18 04:06 98.1 F 88 17 163/87 96 04/24/18 00:00 98.8 F 100 H 17 139/87 96 04/23/18 21:56 94 H 16 95 04/23/18 20:00 98.7 F 97 H 16 159/88 95 04/23/18 16:00 98.3 F 90 18 134/89 93 L 04/23/18 12:00 97.9 F 89 18 131/74 94 L Oxygen-Last 24 hours O2 Percentage 3 Liters = 32% O2 Percentage 3 Liters = 32% O2 Percentage 3 Liters = 32% O2 Percentage 3 Liters = 32% O2 Percentage 3 Liters = 32% O2 Percentage 3 Liters = 32% Pain Assessment - Last Documented Pain Intensity 7 Pain Scale Used 0-10 Pain Scale Intake and Output: Intake & Output 04/22/18 04/23/18 04/24/18 04/25/18 06:59 06:59 06:59 06:59 Intake Total 3103 5659 3372 Output Total 2875 4000 1725 Balance 228 1659 1647 Weight 114.1 kg 113.1 kg 111.9 kg Lab Results: Lab Results-Last 24 Hours 04/23/18 04/23/18 Range/Units 15:05 16:25 Urine Color YELLOW (YELLOW) Urine Appearance CLEAR (CLEAR) Urine pH 8.0 (5-6) Ur Specific [place] 1.011 (1.005-1.025) Urine Protein NEGATIVE (Negative) Urine Ketones NEGATIVE (NEGATIVE) Urine Blood SMALL (0-5) Domingo/ul Urine Nitrite NEGATIVE (NEGATIVE) Urine Bilirubin NEGATIVE (NEGATIVE) Urine Urobilinogen NEGATIVE (0-1) mg/dL Ur Leukocyte Esterase NEGATIVE (NEGATIVE) Urine WBC (Auto) 6-10 (0-5) /HPF Urine RBC (Auto) 11-15 (0-2) /HPF U Epithel Cells (Auto) NONE (FEW) /HPF Urine Mucus (Auto) SLIGHT (NEGATIVE) /HPF Urine Glucose NEGATIVE (NEGATIVE) mg/dL Rheumatoid Factor Scrn NEGATIVE (Negative) Multi-Disciplinary Progress Notes: Multi-Disciplinary Progress Notes 04/24/18 10:49 Case Management Note by Brooke Bella AT THIS TIME HAVE NOT RECEIVED A FAX FROM DR. OTTO'S OFFICE WITH DOCUMENTATION TO WHY PATIENT IS ON LATUDA, PASRR ON HOLD UNTIL THIS IS DONE. JAKUB STILL AWAITING APPROVAL FROM INSURANCE ALSO FOR ANY REHAB PLACEMENT. DR. JACK APPRISED OF SITUATION ON WEDNESDAY, AND WILL REASSESS ON WEDNESDAY. DR VIZCAINO ALSO AWARE. 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 I ordered send out tests for complement and cryloglobulins yesterday. He may need to has specialized care for treatment if he does have this type of vasculitis. Often requires immunospression and also treatment of Hep C if the lab tests confirm that this is the kind of vasculitis that he has. It could also be biopsied. Code(s): I77.6 - ARTERITIS, UNSPECIFIED (2) DVT (deep venous thrombosis) Current Visit: Yes Status: Acute Onset Date: ~04/17/18 Qualifiers: Affected thrombotic vein of extremity: femoral Chronicity: acute Laterality: left Assessment & Plan: Continue lovenox. Dr. Walker, patient's pcp, will decide on termite control servicer therapy for DVT. Code(s): I82.409 - ACUTE EMBOLISM AND THOMBOS UNSP DEEP VN UNSP LOWER EXTREMITY (3) Cellulitis Current Visit: Yes Status: Acute Onset Date: ~04/17/18 Qualifiers: Site of cellulitis: extremity Site of cellulitis of extremity: lower extremity Laterality: unspecified laterality Qualified Code(s): L03.119 - Cellulitis of unspecified part of limb Assessment & Plan: He may have infection of vasculitis. Will continue IV antibiotics. I have asked for new pictures to chart when dressing change is done. Code(s): L03.90 - CELLULITIS, UNSPECIFIED (4) COPD (chronic obstructive pulmonary disease) Current Visit: No Status: Chronic Qualifiers: COPD type: unspecified COPD Qualified Code(s): J44.9 - Chronic obstructive pulmonary disease, unspecified Assessment & Plan: Well controlled. Continue home medications. (5) Constipation Current Visit: Yes Status: Acute Assessment & Plan: Better after receiving magnesium citrate. Continue colace and miralax to prevent constipation. Code(s): K59.00 - CONSTIPATION, UNSPECIFIED
[2018-04-24] MEDS: DOXEPIN HCL PO SCH (21:45)
[2018-04-24] MEDS: REMERON 30 MG PO SCH (21:46)
[2018-04-24 23:34] LABS: COMPLEMENT C3 221 mg/dL (88-201); COMPLEMENT C4 36 mg/dL (10-40)
[2018-04-25 01:32] LABS: HIV Antigen/Antibody Combo Non Reactive (Non Reactive)
[2018-04-25] MEDS: DILAUDID 2 MG INJECTION IV PRN (04:09)
[2018-04-25] MEDS: Sodium Chloride 0.9% 1000 ML 1,000 ML IV SCH (06:01)
[2018-04-25] MEDS: Advair Hfa 115/21 Common canister IH SCH ×2 (07:02→20:40)
[2018-04-25] MEDS: Spiriva 18 Mcg/Cap Inhaler IH SCH (07:02)
--- NOTE | 2018-04-25 09:01 | PCM.NOTE ---
Date and Time: 04/25/1857 Subjective Assessment: Pt's pain is better in the legs this morning, 4-5/10. Walked to the nurses' station yesterday. Still on IV dilaudid for pain. States that his pain is in the ankles and feet/toes, although he indicates that his pain starts in the distal pretibial area. - Review of Systems Constitutional: No Fever Musculoskeletal: Other (foot pain bilat) Objective Exam General Appearance: no apparent distress, alert Neurologic Exam: oriented x 3, cooperative Skin Exam: other (legs wrapped bilat) OBJECTIVE DATA Vital Signs: Vital Signs - 24 hr Temp Pulse Resp BP Pulse Ox 04/25/18 07:23 98.5 F 88 18 152/97 97 04/25/18 07:06 86 20 94 L 04/25/18 04:00 99.1 F 94 H 22 175/90 96 04/25/18 00:18 99.1 F 104 H 20 135/85 95 04/25/18 00:00 20 04/24/18 20:00 20 04/24/18 19:35 98.5 F 91 H 20 155/103 96 04/24/18 19:16 91 H 15 94 L 04/24/18 16:00 98.3 F 87 18 152/87 92 L 04/24/18 12:00 18 04/24/18 11:44 97.8 F 96 H 18 136/86 97 04/24/18 09:01 88 18 96 Oxygen-Last 24 hours O2 Percentage 3 Liters = 32% O2 Percentage 3 Liters = 32% O2 Percentage 3 Liters = 32% O2 Percentage 3 Liters = 32% O2 Percentage 3 Liters = 32% O2 Percentage 3 Liters = 32% Pain Assessment - Last Documented Pain Intensity 8 Pain Scale Used [facility] Intake and Output: Intake & Output 04/22/18 04/23/18 04/24/18 04/25/18 11:59 11:59 11:59 11:59 Intake Total 4566 3956 3372 3326 Output Total 2850 3300 1725 3980 Balance 5533 063 8529 -654 Weight 114.1 kg 113.1 kg 111.9 kg 99.2 kg Lab Results: Lab Results-Last 24 Hours 04/23/18 04/23/18 Range/Units 15:05 15:05 CATALINO IgG Screen Pending Complement C3 221 H (88-201) mg/dL Complement C4 36 (10-40) mg/dL HIV Ag/Ab Combo Qual Non Reactive (Non Reactive) HIV Ag/Ab Interpret See Result Note: Multi-Disciplinary Progress Notes: Multi-Disciplinary Progress Notes 04/24/18 10:49 Case Management Note by Brooke Bella AT THIS TIME HAVE NOT RECEIVED A FAX FROM DR. OTTO'S OFFICE WITH DOCUMENTATION TO WHY PATIENT IS ON LATUDA, PASRR ON HOLD UNTIL THIS IS DONE. JAKUB STILL AWAITING APPROVAL FROM INSURANCE ALSO FOR ANY REHAB PLACEMENT. DR. JACK APPRISED OF SITUATION ON WEDNESDAY, AND WILL REASSESS ON WEDNESDAY. DR VIZCAINO ALSO AWARE. Initialized on 04/24/18 10:49 - END OF NOTE Assessment/Plan (1) Vasculitis Current Visit: Yes Status: Acute Assessment & Plan: labs are pending. Code(s): I77.6 - ARTERITIS, UNSPECIFIED (2) Cellulitis Current Visit: Yes Status: Acute Onset Date: ~04/17/18 Qualifiers: Site of cellulitis: extremity Site of cellulitis of extremity: lower extremity Laterality: unspecified laterality Qualified Code(s): L03.119 - Cellulitis of unspecified part of limb Assessment & Plan: Finishing up IV vancomycin and levaquin; may be able to d/c those today based on pictures that will be taken by PT later on. Code(s): L03.90 - CELLULITIS, UNSPECIFIED (3) DVT (deep venous thrombosis) Current Visit: Yes Status: Acute Onset Date: ~04/17/18 Qualifiers: Affected thrombotic vein of extremity: femoral Chronicity: acute Laterality: left Code(s): I82.409 - ACUTE EMBOLISM AND THOMBOS UNSP DEEP VN UNSP LOWER EXTREMITY (4) Venous stasis dermatitis Current Visit: Yes Status: Acute Onset Date: ~04/17/18 Qualifiers: Laterality: bilateral Qualified Code(s): I87.2 - Venous insufficiency ( chronic) (peripheral) Code(s): I87.2 - VENOUS INSUFFICIENCY (CHRONIC) (PERIPHERAL) (5) COPD (chronic obstructive pulmonary disease) Current Visit: No Status: Chronic Qualifiers: COPD type: unspecified COPD Qualified Code(s): J44.9 - Chronic obstructive pulmonary disease, unspecified (6) Hepatic cirrhosis due to chronic hepatitis C infection Current Visit: Yes Status: Chronic Assessment & Plan: He says it's been at least 6 mo since he saw Dr. Ortega - will have him seen outpatient after discharge. Code(s): B18.2 - CHRONIC VIRAL HEPATITIS C; K74.60 - UNSPECIFIED CIRRHOSIS OF LIVER
[2018-04-25] MEDS: ENOXAPARIN SODIUM SQ SCH ×2 (10:06→21:26)
[2018-04-25] MEDS: Colace 100 MG PO SCH ×2 (10:06→21:25)
[2018-04-25] MEDS: Miralax Powder 17GM PACKET PO SCH ×2 (10:06→11:28)
[2018-04-25] MEDS: Levofloxacin 500MG/100ML D5W 500 MG/100 ML BAG IV SCH (10:07)
[2018-04-25] MEDS: Naprosyn 500 MG PO SCH (10:07)
[2018-04-25] MEDS: Protonix 20MG Tablet PO SCH (10:07)
[2018-04-25] MEDS: MSIR 15 MG PO PRN ×4 (10:08→23:02)
[2018-04-25] MEDS: Nicoderm CQ 21 MG TOP SCH (10:08)
[2018-04-25] MEDS: VANCOCIN 1 GM VIAL*** 1.75 GM in Sodium Chloride 0.9% 500 ML 500 ML IV SCH ×2 (11:21→21:27)
[2018-04-25] MEDS ORDERED: NEURONTIN 300 MG PO ONE (16:00)
[2018-04-25] MEDS: REMERON 30 MG PO SCH (21:25)
[2018-04-25] MEDS: DOXEPIN HCL PO SCH (21:27)
[2018-04-26] MEDS: MSIR 15 MG PO PRN ×4 (05:00→23:49)
[2018-04-26] MEDS: Sodium Chloride 0.9% 1000 ML 1,000 ML IV SCH ×2 (05:00→23:49)
[2018-04-26] MEDS: Advair Hfa 115/21 Common canister IH SCH ×2 (06:53→19:23)
[2018-04-26] MEDS: Spiriva 18 Mcg/Cap Inhaler IH SCH (06:53)
[2018-04-26 08:56] LABS: BASOPHIL % 0.2 % (0.0-0.4); Basophil (Absolute #) 0.01 (0-0.4); Eosinophil % 1.6 % (0.00-5.0); Eosinophil (Absolute #) 0.07 (0-0.5); Granulocyte Absolute (ANC) 3.29 (1.4-6.9); Granulocytes % 73.1 % (36.0-66.0); Hematocrit 34.2 % (42-50); Hemoglobin 10.7 gm/dl (12.5-18.0); Lymphocyte (Absolute #) 0.85 (1.0-4.6); Lymphocytes % 18.9 % (24.0-44.0); Mean Cell Volume 92.7 fl (78-100); Mean Corpuscular Hgb Concent. 31.3 g/dl (32-36); Mean Platelet Volume 9.1 fl (6-9.5); Monocyte (Absolute #) 0.28 (0.0-1.3); Monocytes % 6.2 % (0.0-12.0); Platelet Count 186 K/mm3 (150-450); Red Blood Count 3.69 M/mm3 (4.1-5.6); White Blood Count 4.5 K/mm3 (4.0-10.5)
[2018-04-26] MEDS: Levofloxacin 500MG/100ML D5W 500 MG/100 ML BAG IV SCH (09:06)
[2018-04-26] MEDS: ENOXAPARIN SODIUM SQ SCH ×2 (09:07→21:54)
[2018-04-26] MEDS: NEURONTIN 300 MG PO SCH ×2 (09:07→21:53)
[2018-04-26] MEDS: Nicoderm CQ 21 MG TOP SCH (09:07)
[2018-04-26] MEDS: Naprosyn 500 MG PO SCH (09:07)
[2018-04-26] MEDS: Miralax Powder 17GM PACKET PO SCH (09:07)
[2018-04-26] MEDS: Protonix 20MG Tablet PO SCH (09:07)
[2018-04-26] MEDS: Colace 100 MG PO SCH ×2 (09:07→21:54)
[2018-04-26 09:08] LABS: Mean Corpuscular Hemoglobin 28.9 pg (26-32)
[2018-04-26 09:32] LABS: ALBUMIN 3.4 g/dL (3.5-5.0); ALKALINE PHOSPHATASE 214 U/L (38-126); ANION GAP 11.4 MEQ/L (5-15); BLOOD UREA NITROGEN 11 mg/dL (9-20); CHLORIDE 99 mmol/L (98-107); Calcium 8.7 mg/dL (8.4-10.2); Carbon Dioxide 31 mmol/L (22-30); Creatinine 1 0.78 mg/dL (0.66-1.25); Glucose 118 mg/dL (74-106); Potassium 4.5 mmol/L (3.5-5.1); SGOT/AST 25 U/L (17-59); SGPT/ALT 24 U/L (0-50); SODIUM 137 mmol/L (137-145); Total Protein 6.9 g/dL (6.3-8.2)
[2018-04-26] MEDS: VANCOCIN 1 GM VIAL*** 1.75 GM in Sodium Chloride 0.9% 500 ML 500 ML IV SCH ×2 (10:50→21:54)
[2018-04-26 12:42] LABS: ANA IgG Screen Positive (Neg. at 1:80); ANA Pattern Speckled
[2018-04-26 13:27] LABS: ANA Pattern Interp Detail See Result Note:
[2018-04-26] MEDS: DOXEPIN HCL PO SCH (21:53)
[2018-04-26] MEDS: REMERON 30 MG PO SCH (21:53)
--- NOTE | 2018-04-26 22:00 | PCM.NOTE ---
Date and Time: 04/26/182153 Subjective Assessment: Late entry for 04/26/18 0830: His pain is better with the morphine IR 30mg. He did not get up and walk yesterday due to pain/pain meds being adjusted. - Review of Systems Constitutional: No Fever Musculoskeletal: Other (foot/ankle pain) Objective Exam General Appearance: no apparent distress, alert Neurologic Exam: oriented x 3, cooperative Skin Exam: warm, dry, No rash Ears, Nose, Throat Exam: moist mucous membranes Respiratory Exam: lungs clear, diminished breath sounds, No crackles/rales, No rhonchi, No wheezing Cardiovascular Exam: regular rate/rhythm, normal heart sounds, No murmur Extremity Exam: other (Legs without erythema bilaterally. There are red/purple macules scattered over LE, R>L) Back Exam: normal inspection, No rash OBJECTIVE DATA Vital Signs: Vital Signs - 24 hr Temp Pulse Resp BP Pulse Ox 04/26/18 19:26 96 H 18 91 L 04/26/18 19:16 99.2 F 97 H 22 128/76 96 04/26/18 16:19 98 F 94 H 20 117/69 93 L 04/26/18 11:39 98.6 F 98 H 18 134/84 95 04/26/18 08:00 98.9 F 91 H 18 139/93 95 04/26/18 06:59 78 18 96 04/26/18 04:00 98.6 F 87 21 142/86 94 L 04/26/18 00:00 98.3 F 88 14 135/84 95 Oxygen-Last 24 hours O2 Percentage 3 Liters = 32% O2 Percentage 3 Liters = 32% O2 Percentage 3 Liters = 32% O2 Percentage 3 Liters = 32% O2 Percentage 3 Liters = 32% Pain Assessment - Last Documented Pain Intensity 5 Pain Scale Used 0-10 Pain Scale Intake and Output: Intake & Output 04/24/18 04/25/18 04/26/18 04/27/18 11:59 11:59 11:59 11:59 Intake Total 3372 3326 3432 1847 Output Total 1725 5030 2500 1950 Balance 1647 -1704 932 -103 Weight 111.9 kg 108.1 kg 110.1 kg Lab Results: Lab Results-Last 24 Hours 02/02/19 02/05/19 02/05/19 Range/Units 15:05 07:35 09:00 WBC 4.5 (4.0-10.5) K/mm3 RBC 3.69 L (4.1-5.6) M/mm3 Hgb 10.7 L (12.5-18.0) gm/dl Hct 34.2 L (42-50) % MCV 92.7 (78-100) fl MCH 28.9 (26-32) pg MCHC 31.3 L (32-36) g/dl RDW 15.0 H (11.5-14.0) % Plt Count 186 (150-450) K/mm3 MPV 9.1 (6-9.5) fl Gran % 73.1 H (36.0-66.0) % Eos # (Auto) 0.07 (0-0.5) Absolute Lymphs (auto) 0.85 L (1.0-4.6) Absolute Monos (auto) 0.28 (0.0-1.3) Lymphocytes % 18.9 L (24.0-44.0) % Monocytes % 6.2 (0.0-12.0) % Eosinophils % 1.6 (0.00-5.0) % Basophils % 0.2 (0.0-0.4) % Absolute Granulocytes 3.29 (1.4-6.9) Basophils # 0.01 (0-0.4) Sodium 137 (137-145) mmol/L Potassium 4.5 (3.5-5.1) mmol/L Chloride 99 (98-107) mmol/L Carbon Dioxide 31 H (22-30) mmol/L Anion Gap 11.4 (5-15) MEQ/L BUN 11 (9-20) mg/dL Creatinine 0.78 (0.66-1.25) mg/dL Estimated GFR > 60.0 ML/MIN Glucose 118 H (74-106) mg/dL Calcium 8.7 (8.4-10.2) mg/dL Total Bilirubin 0.50 (0.2-1.3) mg/dL AST 25 (17-59) U/L ALT 24 (0-50) U/L Alkaline Phosphatase 214 H (38-126) U/L Serum Total Protein 6.9 (6.3-8.2) g/dL Albumin 3.4 L (3.5-5.0) g/dL CAT[facility] IgG Screen Positive H (Neg. at 1:80) CAT[facility] IgG Titer 1:320 H (Not Indicated) titer CATALINO Pattern Speckled CATALINO Interpretation See Result Note: Assessment/Plan (1) Vasculitis Current Visit: Yes Status: Acute Assessment & Plan: possible. Labs pending. He is following up with Dr. Ortega in 2 days. Leg pain is still severe. He is on gabapentin. Would like to wean off the morphine over the next few weeks. He can't use any tylenol due to his hepatitis/ cirrhosis. Code(s): I77.6 - ARTERITIS, UNSPECIFIED (2) Cellulitis Current Visit: Yes Status: Acute Onset Date: ~04/17/18 Qualifiers: Site of cellulitis: extremity Site of cellulitis of extremity: lower extremity Laterality: unspecified laterality Qualified Code(s): L03.119 - Cellulitis of unspecified part of limb Assessment & Plan: Will d/c IV antibiotics after today. Has received 10d of IV antibiotics. Will rx doxycycline for 4 more days. Code(s): L03.90 - CELLULITIS, UNSPECIFIED (3) DVT (deep venous thrombosis) Current Visit: Yes Status: Acute Onset Date: ~04/17/18 Qualifiers: Affected thrombotic vein of extremity: femoral Chronicity: acute Laterality: left Assessment & Plan: Will be on xarelto after discharge. Code(s): I82.409 - ACUTE EMBOLISM AND THOMBOS UNSP DEEP VN UNSP LOWER EXTREMITY (4) Venous stasis dermatitis Current Visit: Yes Status: Acute Onset Date: ~04/17/18 Qualifiers: Laterality: bilateral Qualified Code(s): I87.2 - Venous insufficiency ( chronic) (peripheral) Code(s): I87.2 - VENOUS INSUFFICIENCY (CHRONIC) (PERIPHERAL) (5) COPD (chronic obstructive pulmonary disease) Current Visit: No Status: Chronic Qualifiers: COPD type: unspecified COPD Qualified Code(s): J44.9 - Chronic obstructive pulmonary disease, unspecified (6) Hepatic cirrhosis due to chronic hepatitis C infection Current Visit: Yes Status: Chronic Code(s): B18.2 - CHRONIC VIRAL HEPATITIS C; K74.60 - UNSPECIFIED CIRRHOSIS OF LIVER (7) Muscular deconditioning Current Visit: Yes Status: Acute Assessment & Plan: He will be discharged to [facility] when insurance approval is final. Code(s): R29.898 - OT SYMPTOMS AND SIGNS INVOLVING THE MUSCULOSKELETAL SYSTEM
[2018-04-27] MEDS: MSIR 15 MG PO PRN ×3 (05:36→19:23)
[2018-04-27] MEDS: Advair Hfa 115/21 Common canister IH SCH ×2 (06:51→19:45)
[2018-04-27] MEDS: Spiriva 18 Mcg/Cap Inhaler IH SCH (06:51)
[2018-04-27] MEDS ORDERED: CITROMA 296 ML PO ONE (08:34)
--- NOTE | 2018-04-27 08:59 | PCM.NOTE ---
Date and Time: 04/27/18 0854 Subjective Assessment: Pt's leg pain is 6/10 this morning. Matt po well. - Review of Systems Constitutional: No Fever Musculoskeletal: Other (leg pain) Objective Exam General Appearance: no apparent distress, alert Neurologic Exam: oriented x 3, cooperative Skin Exam: warm, dry, other (pt has long stockings on bilat but when partially removed the skin appears to be normal color aside from the distinct lesions of red/purple macules, several large lesions scattered as before.) Ears, Nose, Throat Exam: moist mucous membranes Respiratory Exam: normal breath sounds, lungs clear, No crackles/rales, No rhonchi, No wheezing Cardiovascular Exam: regular rate/rhythm, normal heart sounds, No murmur Gastrointestinal/Abdomen Exam: soft, normal bowel sounds, distention, No tenderness, No mass (unable to appreciate any mass due to distension; unchanged) , No guarding, No rebound OBJECTIVE DATA Vital Signs: Vital Signs - 24 hr Temp Pulse Resp BP Pulse Ox 04/27/18 08:00 20 04/27/18 07:12 97.7 F 83 20 131/78 97 04/27/18 06:54 84 16 96 04/27/18 03:48 98.4 F 91 H 14 124/72 95 04/26/18 23:53 99.0 F 95 H 20 137/79 97 04/26/18 19:26 96 H 18 91 L 04/26/18 19:16 99.2 F 97 H 22 128/76 96 04/26/18 16:19 98 F 94 H 20 117/69 93 L 04/26/18 11:39 98.6 F 98 H 18 134/84 95 Oxygen-Last 24 hours O2 Percentage 3 Liters = 32% O2 Percentage 3 Liters = 32% O2 Percentage 3 Liters = 32% O2 Percentage 3 Liters = 32% O2 Percentage 3 Liters = 32% Pain Assessment - Last Documented Pain Intensity 7 Pain Scale Used 0-10 Pain Scale Intake and Output: Intake & Output 04/24/18 04/25/18 04/26/18 04/27/18 11:59 11:59 11:59 11:59 Intake Total 3372 3326 3432 3001 Output Total 1729 5200 2500 3850 Balance 1647 -1704 932 -849 Weight 111.9 kg 108.1 kg 110.1 kg 109.8 kg Lab Results: Lab Results-Last 24 Hours 04/23/18 04/26/18 04/26/18 Range/Units 15:05 07:35 09:00 WBC 4.5 (4.0-10.5) K/mm3 RBC 3.69 L (4.1-5.6) M/mm3 Hgb 10.7 L (12.5-18.0) gm/dl Hct 34.2 L (42-50) % MCV 92.7 (78-100) fl MCH 28.9 (26-32) pg MCHC 31.3 L (32-36) g/dl RDW 15.0 H (11.5-14.0) % Plt Count 186 (150-450) K/mm3 MPV 9.1 (6-9.5) fl Gran % 73.1 H (36.0-66.0) % Eos # (Auto) 0.07 (0-0.5) Absolute Lymphs (auto) 0.85 L (1.0-4.6) Absolute Monos (auto) 0.28 (0.0-1.3) Lymphocytes % 18.9 L (24.0-44.0) % Monocytes % 6.2 (0.0-12.0) % Eosinophils % 1.6 (0.00-5.0) % Basophils % 0.2 (0.0-0.4) % Absolute Granulocytes 3.29 (1.4-6.9) Basophils # 0.01 (0-0.4) Sodium 137 (137-145) mmol/L Potassium 4.5 (3.5-5.1) mmol/L Chloride 99 (98-107) mmol/L Carbon Dioxide 31 H (22-30) mmol/L Anion Gap 11.4 (5-15) MEQ/L BUN 11 (9-20) mg/dL Creatinine 0.78 (0.66-1.25) mg/dL Estimated GFR > 60.0 ML/MIN Glucose 118 H (74-106) mg/dL Calcium 8.7 (8.4-10.2) mg/dL Total Bilirubin 0.50 (0.2-1.3) mg/dL AST 25 (17-59) U/L ALT 24 (0-50) U/L Alkaline Phosphatase 214 H (38-126) U/L Serum Total Protein 6.9 (6.3-8.2) g/dL Albumin 3.4 L (3.5-5.0) g/dL [facility] IgG Screen Positive H (Neg. at 1:80) [facility] IgG Titer 1:320 H (Not Indicated) titer [facility] Pattern Speckled [facility] Interpretation See Result Note: Assessment/Plan (1) Vasculitis Current Visit: Yes Status: Acute Assessment & Plan: possibly. Continuing to treat for cellulitis; finishing 14d of antibiotics. CATALINO panel wiht some positive results - ?manifestation of lupus? Getting pt set up with rheumatology through our office. Code(s): I77.6 - ARTERITIS, UNSPECIFIED (2) Cellulitis Current Visit: Yes Status: Acute Onset Date: ~04/17/18 Qualifiers: Site of cellulitis: extremity Site of cellulitis of extremity: lower extremity Laterality: unspecified laterality Qualified Code(s): L03.119 - Cellulitis of unspecified part of limb Assessment & Plan: changed IV antibiotics to doxycycline today. Code(s): L03.90 - CELLULITIS, UNSPECIFIED (3) DVT (deep venous thrombosis) Current Visit: Yes Status: Acute Onset Date: ~04/17/18 Qualifiers: Affected thrombotic vein of extremity: femoral Chronicity: acute Laterality: left Assessment & Plan: changing lovenox to xarelto today. Code(s): I82.409 - ACUTE EMBOLISM AND THOMBOS UNSP DEEP VN UNSP LOWER EXTREMITY (4) Venous stasis dermatitis Current Visit: Yes Status: Acute Onset Date: ~04/17/18 Qualifiers: Laterality: bilateral Qualified Code(s): I87.2 - Venous insufficiency ( chronic) (peripheral) Code(s): I87.2 - VENOUS INSUFFICIENCY (CHRONIC) (PERIPHERAL) (5) COPD (chronic obstructive pulmonary disease) Current Visit: No Status: Chronic Qualifiers: COPD type: unspecified COPD Qualified Code(s): J44.9 - Chronic obstructive pulmonary disease, unspecified Assessment & Plan: stable (6) Hepatic cirrhosis due to chronic hepatitis C infection Current Visit: Yes Status: Chronic Assessment & Plan: will f/u tomorrow with Dr. Oretga. Code(s): B18.2 - CHRONIC VIRAL HEPATITIS C; K74.60 - UNSPECIFIED CIRRHOSIS OF LIVER (7) Muscular deconditioning Current Visit: Yes Status: Acute Assessment & Plan: pt needs discharge to rehab. Getting out of bed very little. Lives alone. Code(s): R29.898 - OT SYMPTOMS AND SIGNS INVOLVING THE MUSCULOSKELETAL SYSTEM
[2018-04-27] MEDS: XARELTO 10 MG TABLET PO SCH ×2 (09:37→21:41)
[2018-04-27] MEDS: Miralax Powder 17GM PACKET PO SCH (09:40)
[2018-04-27] MEDS: Nicoderm CQ 21 MG TOP SCH (09:40)
[2018-04-27] MEDS: NEURONTIN 300 MG PO SCH ×3 (09:41→21:41)
[2018-04-27] MEDS: Colace 100 MG PO SCH ×2 (09:41→21:41)
[2018-04-27] MEDS: Vibramycin 100 MG PO SCH ×2 (09:42→21:40)
[2018-04-27] MEDS: Protonix 20MG Tablet PO SCH (09:42)
[2018-04-27] MEDS: Sodium Chloride 0.9% 1000 ML 1,000 ML IV SCH (13:48)
[2018-04-27] MEDS: REMERON 30 MG PO SCH (21:40)
[2018-04-27] MEDS: DOXEPIN HCL PO SCH (21:41)
[2018-04-28] MEDS: MSIR 15 MG PO PRN ×3 (00:30→12:44)
[2018-04-28] MEDS: PROVENTIL 2.5 MG/3 ML NEB IH PRN ×2 (00:42→09:29)
[2018-04-28] MEDS: Sodium Chloride 0.9% 1000 ML 1,000 ML IV SCH (03:39)
[2018-04-28] MEDS: Advair Hfa 115/21 Common canister IH SCH (06:55)
[2018-04-28] MEDS: Spiriva 18 Mcg/Cap Inhaler IH SCH (06:55)
[2018-04-28] MEDS: Miralax Powder 17GM PACKET PO SCH (08:51)
[2018-04-28] MEDS: Vibramycin 100 MG PO SCH (08:51)
[2018-04-28] MEDS: NEURONTIN 300 MG PO SCH ×2 (08:52→14:12)
[2018-04-28] MEDS: XARELTO 10 MG TABLET PO SCH (08:54)
[2018-04-28] MEDS: Nicoderm CQ 21 MG TOP SCH (08:56)
[2018-04-28] MEDS: Colace 100 MG PO SCH (08:57)
[2018-04-28] MEDS: Protonix 20MG Tablet PO SCH (08:57)
--- NOTE | 2018-04-28 09:05 | PCM.DS ---
Discharge Summary Date of Admission: 04/17/18 02:57 Admitting Physician: MONTSERRAT JACK Primary Care Provider: MONTSERRAT JACK Allergies Allergies No Known Drug Allergies Allergy (Verified 04/17/18 03:24) Hospital Summary - Hospital Course Hospital Course: Pt is 52 yo male pt of mine from [facility] with COPD, Hepatitis C, polycythemia vera, hx testicular cancer, who was admitted through the ER with new onset of bilateral foot and leg pain with "blood blisters." He was found to have a DVT on the left and thought to have cellulitis superimposed on venous stasis change on both legs. He was started on zosyn and vancomycin IV, PT for wound care. 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 Labs were run that included an CATALINO panel which was positive, which raises the spectre of SLE. He will follow up outpatient with Dr. Fallon (infectious disease) and rheumatology. Yesterday pt's IV antibiotics were discontinued and he will finish 14d of antibiotics with doxycycline. Pt was put on lovenox 1mg/kg SQ BID for DVT treatment. Yesterday he was transitioned to xarelto; it is supposed to be covered by his insurance after discharge. Pt's legs have decreased erythema, macular erthema/purple discoloration where the vesicles were previously present, but persistent pain. He was initially on dilaudid IV, and now is on morphine IR 60mg QID prn; pain this morning is fairly typical for him at 6/10. He has been started on neurontin but has only been on 300mg po TID for 2 days. He did get up and walk in the [place] yesterday with assistance but otherwise has been quite sedentary through his stay, most days unable to tolerate a trip to the bathroom. He lives alone so I determined he needs a rehab stay so that he can function safely at home after discharge. I'm also concerned that he safely manage the large amount of pain medicine he is currently on. His COPD has been stable throughout his stay. He did require a breathing treatment last night for wheezing, has had wheezing off and on but no increased cough and he remains on his home O2. He was supposed to have respiratory rehab at one point but was never called for it; he should have this at LTCF or after discharge (as soon as he is able to tolerate it). Pt sees Dr. Diamond for psychiatric issues; he is on latuda and remeron. He has had absolutely no abnormal behaviors during his admission here; he is compliant and cooperative at all times. - Vitals & Intake/Output Vital Signs: Vital Signs Temperature 99.3 F 04/28/18 08:00 Pulse Rate 92 H 04/28/18 08:00 Respiratory Rate 18 04/28/18 08:00 Blood Pressure 114/71 04/28/18 08:00 O2 Sat by Pulse Oximetry 94 L 04/28/18 08:00 Oxygen-Last Documented O2 Percentage 3 Liters = 32% Intake & Output: Intake & Output 04/25/18 04/26/18 04/27/18 04/28/18 11:59 11:59 11:59 11:59 Intake Total 3326 3432 3001 2887 Output Total 5030 2500 3850 1900 Balance -1704 932 -849 987 Weight 108.1 kg 110.1 kg 109.8 kg 110.7 kg - Lab Result Diagrams: 04/26/18 07:35 04/26/18 09:00 - Procedures and Test Procedures and Tests throughout Hospitalization: Therapy Orders & Screens 04/17/18 03:02 PT Eval & Treat ( Order) ROUTINE Reason for Eval:: ambulation and transfer Diagnosis: dvt and cellulitis 04/17/18 04:05 OT Screen per Nursing Assess ONCE Comment: Protocol Order Physician Instructions: Greater than 3 points order OT Admission Screening Reason For Exam: Triggered on Admission Diagnosis: DVT/Cellulitis Open Wound/Cellutlitis/Pressure Ulcers: Yes Acute Fx/ORIF/Change in wt bearing status: No Severe MUSCULOSKELETAL pain: No ADL Dysfunction: Yes Acute CVA w/Hemiparesis/Hemiplegia: No Decreased Functional Mobility/Strength: Yes Sprain/Strain: No Acute Post-op Mobility Dysfunction: No Total Points: 9 PT Screen per Nursing Assess ONCE Comment: Protocol Order Physician Instructions: Greater than 3 points order PT Admission Screenin Reason For Exam: Triggered on Admission Diagnosis: DVT/Cellulitis Open Wound/Cellutlitis/Pressure Ulcers: Yes Acute Fx/ORIF/Change in wt bearing status: No Severe MUSCULOSKELETAL pain: No ADL Dysfunction: Yes Acute CVA w/Hemiparesis/Hemiplegia: No Decreased Functional Mobility/Strength: Yes Sprain/Strain: No Acute Post-op Mobility Dysfunction: No Total Points: 9 RT Screen per Nursing Assess ONCE Comment: Protocol Order Physician Instructions: Greater than 3 points order RT Admission Screen Reason For Exam: Triggered on Admission Diagnosis: DVT/Cellulitis Diagnosis: DVT/Cellulitis Pneumonia: No Home O2: Yes Asthma: No CHF: No Home CPAP/BIPAP: Yes Home Nebs/MDI: Yes Total Points: 15 Smoking Cessation Education ONCE Comment: Diagnosis: DVT/Cellulitis Smoking Status: Heavy tobacco smoker How long have you smoked: 42 years Have you smoked in the past 12 months: Yes Approximately how many cigarettes per day: pack a day Do you dip or chew tobacco: No 04/17/18 05:39 Oxygen Nasal Cannula 3 lpm Comment: Diagnosis: DVT/Cellulitis 04/17/18 05:40 Respiratory Therapy Assessment DAILY Comment: Diagnosis: DVT/Cellulitis 04/17/18 11:38 Respiratory MDI BID Comment: Diagnosis: DVT/Cellulitis 04/18/18 09:02 PT Eval & Treat (MD Order) ROUTINE Reason for Eval:: cellulitis/vesicles Diagnosis: DVT/Cellulitis Discharge Exam General Appearance: no apparent distress, alert Neurologic Exam: oriented x 3, cooperative Skin Exam: other (bilat LE without erythema; RLE >L with several large macules that are erythematous/purple. 1+ edema on L. tender throughout.) Respiratory Exam: diminished breath sounds, wheezing (faint in LLL), No crackles /rales, No rhonchi Cardiovascular Exam: regular rate/rhythm, normal heart sounds, No murmur Back Exam: normal inspection, other (scattered acne and scarring) Final Diagnosis/Problem List - Final Discharge Diagnosis/Problem (1) Vasculitis Current Visit: Yes Status: Acute Assessment & Plan: possible. He is following up with Dr. Fallon; was supposed to have an appointment today but due to delays transferring him to LTCF, he will have to put that appointment off until Wednesday next week (6d). clinically, he has improved, but he is still having quite a bit of pain. on neurontin and morphing IR. (2) Cellulitis Current Visit: Yes Status: Acute Onset Date: ~04/17/18 Assessment & Plan: much improved. Will finish 3 more d of doxycycline. (3) DVT (deep venous thrombosis) Current Visit: Yes Status: Acute Onset Date: ~04/17/18 Assessment & Plan: Finish 10more days of xarelto 15 mg po BID then 20 mg po daily. (4) Venous stasis dermatitis Current Visit: Yes Status: Suspected Onset Date: ~04/17/18 (5) COPD (chronic obstructive pulmonary disease) Current Visit: No Status: Chronic (6) Hepatic cirrhosis due to chronic hepatitis C infection Current Visit: Yes Status: Chronic (7) Muscular deconditioning Current Visit: Yes Status: Acute Assessment & Plan: to LTCF today (8) Polycythemia vera Current Visit: Yes Status: Acute Assessment & Plan: needs to f/u with Dr. Jackson - Discharge Disposition: Skilled Care @ [facility] Condition: Stable Prescriptions: New Docusate Sodium 100 mg [Colace 100 MG] 100 mg PO BID capsule Bisacodyl 10 mg [Dulcolax 10 MG SUPP] 10 mg MS QDP PRN supp.rect PRN Reason: Constipation Polyethylene Glycol 3350 17 gm [Miralax Powder 17GM PACKET] 17 gm PO DAILY packet Morphine Sulfate Ir 15 mg [Msir 15 mg] 30 mg PO QID PRN PRN #28 tablet MDD 4 PRN Reason: Pain Gabapentin [Neurontin] 300 mg PO TID #90 capsule Nicotine 21 mg [Nicoderm CQ 21 MG] 21 mg TOP Q24H #7 patch Tiotropium Edgard Inhaler [Spiriva 18 Mcg/Cap Inhaler] 1 ea IH DAILY # 1 unit Doxycycline Hyclate 100 mg [Vibramycin 100 MG] 100 mg PO BID #6 tab Rivaroxaban [Xarelto] 20 mg PO DAILY #30 tablet Rivaroxaban 10 mg Tablet [Xarelto 10 mg Tablet] 15 mg PO BID #20 tablet Continue Mirtazapine 45 mg PO QHS Lurasidone HCl [Latuda] 1 tab PO QHS Fluticasone/Vilanterol [Breo Ellipta 100-25 Mcg INH] 1 puff IH DAILY Doxepin HCl 75 mg PO QHS Albuterol 8 gm Mdi Hfa [Ventolin Hfa MDI] 2 puff IH Q4HPRN PRN PRN Reason: soa Albuterol 2.5 mg/0.5 ml [PROVENTIL Solution 2.5 MG/0.5 ML] 2.5 mg IH QID Discontinued Naproxen 500 mg [Naprosyn 500 MG] 500 mg PO DAILY Follow up with: SALONI FALLON MD [COURTESY STAFF] - 05/02/18 11:00 am
[2018-04-28 14:33] VITALS: BP 118/77; PULSE 99; O2SAT 96
== END 2018-04-28 14:20 | DRG 546 ==
LOC: ED 21:59 → MED SURG 04-17 02:57
PROVIDERS: ADMIT Family Medicine; ATTEND Family Medicine
DX: I77.6 Arteritis, unspecified (principal); L03.116 Cellulitis of left lower limb; L03.115 Cellulitis of right lower limb; I82.403 Acute embolism and thrombosis of unspecified deep veins of lower extremity, bilateral; I87.2 Venous insufficiency (chronic) (peripheral); J44.9 Chronic obstructive pulmonary disease, unspecified; D45 Polycythemia vera; Z79.899 Other long term (current) drug therapy; B18.2 Chronic viral hepatitis C; K74.60 Unspecified cirrhosis of liver; M79.605 Pain in left leg; M79.604 Pain in right leg; K59.00 Constipation, unspecified; R29.898 Other symptoms and signs involving the musculoskeletal system; Z85.47 Personal history of malignant neoplasm of testis; Z79.01 Long term (current) use of anticoagulants
CPT/HCPCS: 36000; 36415; 36569; 71045; 71260; 80048; 80053; 80202; 81001; 82595; 83880; 85025; 85379; 86038; 86160; 86430; 86701; 86702; 87389; 93306; 93925; 93970; 94150; 94640; 94760; 94762; 96360; 96365; 96372; 96374; 96375; 96376; 99285; A6457; J0696; J1170; J1642; J1650; J1956; J2270; J2405; J3370; J7609; A9270-GY

== ENCOUNTER 2019-07-04 07:22 | Emergency (ER) | payer OTHER ==
[2019-07-04 07:35] VITALS: BP 148/92; PULSE 95; O2SAT 98
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
--- NOTE | 2019-07-04 08:10 | XRAY ---
Indication: Pain following fall. Comparison: None 3 views of the left wrist demonstrates mild degenerative changes 1st metacarpal multangular scaphoid articulation with tiny heterotopic ossification. Also small posterior lunate spurring and mild radiocarpal joint space narrowing. No other bony, articular, or soft tissue abnormalities.
== END 2019-07-04 08:30 | disposition home or self-care (01) ==
LOC: ED 07:22
DX: S63.502A Unspecified sprain of left wrist, initial encounter (principal); W01.0XXA Fall on same level from slipping, tripping and stumbling without subsequent striking against object, initial encounter; Z79.899 Other long term (current) drug therapy
CPT/HCPCS: 73110; 99283; L3908

== ENCOUNTER 2019-11-20 13:12 | Day surgery (SDC) | payer OTHER ==
--- NOTE | 2019-11-20 09:53 | HP ---
DATE OF SURGERY: 11/20/2019 HISTORY OF PRESENT ILLNESS: The patient is a 54 year old who has history of moderately enlarged ventral hernia in mid abdomen. PAST MEDICAL HISTORY: He has history of chronic obstructive pulmonary disease, hepatitis C. History of testicular cancer in the past. Depression and anxiety in the past. Emphysema, chronic liver disease, chronic obstructive pulmonary disease, hepatitis C in the past. Mediastinal adenopathy, polycythemia in the past. PAST SURGICAL HISTORY: Biopsy of lung in the past. MEDICATIONS: Gabapentin, Albuterol, Breo Ellipta, fluconazole, Naprosyn, Requip, mirtazapine, omeprazole, Latuda, Ventolin HFA, MiraLAX, trazodone. ALLERGIES: NKDA. FAMILY HISTORY: Cancer. Heart disease. Chronic obstructive pulmonary disease. SOCIAL HISTORY: One pack per day smoker. Rare alcohol use. REVIEW OF SYSTEMS: Fourteen systems reviewed. No chest pain or palpitations. Other systems negative or noncontributory as above and per preadmission questionnaire. PHYSICAL EXAMINATION: GENERAL: No acute distress. HEENT: Sclerae nonicteric. NECK: No JVD. CHEST: Breath sounds symmetrical, chronic obstructive pulmonary disease. CVS: Regular rate and rhythm. ABDOMEN: Soft, mildly enlarged ventral hernia in need of repair. EXTREMITIES: No significant edema. NEURO: Alert, moving extremities symmetrically. No gross motor deficits noted. PSYCH: Appropriate mood and affect. IMPRESSION: Incarcerated moderate sized ventral hernia. I feel the patient will benefit from repair. Discussed options of open versus laparoscopic assisted, possible open ventral hernia repair. The patient was cleared by Dr. Ch to proceed with surgery. The risks and benefits were explained in detail but not limited to bleeding or infection, trocar injury or hernia. Risk of bowel, bladder, blood vessel injury, subsequent adhesions or obstruction, risk of leaking, ascites as he has some chronic liver disease. Otherwise, risk of mesh infection possibly requiring removal, risk of hematoma or seroma formation, risk of mesh fracture or failure, possibility injury to viscera or other structures possibly requiring open procedure, general risk of aches, pains, burning or numbness possibly shelter or chronic nature as well as risk of hernia recurrence possibility of deep venous thrombosis, pulmonary embolism, pneumonia, perioperative risk of cardiopulmonary event other comorbidities. He understands and agrees to the planned procedure and will proceed with laparoscopic assisted ventral hernia repair with mesh.
[~2019-11-20 13:12] MED LIST: CEFAZOLIN 2 GM-D5W BAG** 2 GM/50 ML ML IV ONE; Lactated Ringers 1,000 ML IV ONE; Lactated Ringers 1,000 ML IV SCH; Sensorcaine 0.25% 10 ML ONE
[2019-11-20 13:47] LABS: Barbiturate,Urine NEGATIVE (NEGATIVE); Benzodiazepine,Urine NEGATIVE (NEGATIVE); Cocaine,Urine NEGATIVE (NEGATIVE); Methadone,Urine NEGATIVE (NEGATIVE); Opiate,Urine NEGATIVE (NEGATIVE); PCP,Urine NEGATIVE (NEGATIVE); THC,Urine NEGATIVE (NEGATIVE)
[2019-11-20 14:09] LABS: Amphetamine,Urine POSITIVE (NEGATIVE)
[2019-11-20] MEDS ORDERED: SUBLIMAZE 250 MCG/5 ML ONE (14:23)
[2019-11-20] MEDS ORDERED: DIPRIVAN 200 MG/20 ML IV ONE (14:23)
[2019-11-20] MEDS ORDERED: Zemuron 100 MG/10 ML ONE ×2 (14:23→15:44)
[2019-11-20] MEDS ORDERED: Versed 2 MG/2 ML Injection ONE (14:23)
[2019-11-20] MEDS ORDERED: Quelicin Fliptop 200 MG/10 ML ONE (14:25)
[2019-11-20] MEDS ORDERED: SUBLIMAZE 100 MCG/2 ML ONE ×2 (15:17→16:27)
[2019-11-20] MEDS ORDERED: MORPHINE SULFATE 10 MG/ML ONE (16:27)
[2019-11-20] MEDS ORDERED: BRIDION 200MG/2ML IV ONE (16:31)
[2019-11-20 16:45] LABS: Appearance CLEAR (CLEAR); Bilirubin NEGATIVE (NEGATIVE); Blood SMALL Ery/ul (0-5); Epithelial Cells RARE /HPF (FEW); Glucose NEGATIVE (NEGATIVE); Ketones NEGATIVE (NEGATIVE); Leukocyte Esterase SMALL (NEGATIVE); Mucus SLIGHT /HPF (NEGATIVE); Nitrite NEGATIVE (NEGATIVE); Protein,Urine Dip NEGATIVE (Negative); Urobilinogen NEGATIVE mg/dL (0-1)
[2019-11-20 17:26] VITALS: O2SAT 100
[2019-11-20 17:55] VITALS: PULSE 59
[2019-11-20 17:56] VITALS: BP 136/78
--- NOTE | 2019-11-21 12:17 | OP ---
SURGERY DATE/TIME: 11/20/2019 1446 PREOPERATIVE DIAGNOSES: 1) Incarcerated ventral hernia. 2) History of chronic obstructive pulmonary disease. 3) History of hepatitis C. 4) Chronic liver disease. POSTOPERATIVE DIAGNOSES: 1) Incarcerated ventral hernia. 2) History of chronic obstructive pulmonary disease. 3) History of hepatitis C. 4) Chronic liver disease. PROCEDURE: Laparoscopic repair of incarcerated ventral hernia with mesh. SURGEON: Dr. Jaleel Hare. ANESTHESIA: General. ESTIMATED BLOOD LOSS: Minimal. INDICATIONS: As noted above. Risks and benefits explained in detail and not limited to and consent obtained. DESCRIPTION OF PROCEDURE AND FINDINGS: The patient is taken to the operating room. General anesthesia induced. Abdomen prepped and draped in usual sterile fashion. After official time out and no disagreement with planned procedure, a transverse incision made left upper quadrant. Veress needle inserted and tested with saline. Pneumoperitoneum accomplished, opening pressure 0 to 15. A 5 mm bladeless port and camera inserted without difficulty followed by left mid abdomen 5 mm port, left lower quadrant 5 mm port and right mid abdomen 5 mm port. There is no evidence of any intra-abdominal injury secondary to trocar or Veress needle placement. He did have some incarcerated omentum up in his mid-abdominal ventral hernia this was carefully reduced with the aid of LigaSure clearing the preperitoneal space circumferentially around this area to allow for the mesh to lay flatter and was carefully accomplished. Given his liver disease, he had a very patulous hernia sac. The site was measured. It was felt the Ventralex ST mesh most appropriate size and was carefully opened. Straps were cut off. Vicryl stay suture placed in the center of the mesh, four quadrants 0 Ethibond placed transfacial sutures. At this point given the very large hernia sac, it was felt he was at risk of developing large seroma perioperatively it was felt to be best to go ahead and excise the hernia sac as we are going to have to drop the mesh in place. Small incision is made above the hernia site where the large hernia sac was carefully dissected out, transected and passed off to reduce the risk of seroma formation. A 12 port had been placed through the defect allowing the mesh to be rolled in place in the right upper quadrant temporarily. Once this was done some #1 Vicryl sutures were used to bring the fascial defect back to the midline, approximating the fascia to further reduce the risk of recurrence. Once this was accomplished the shelving portion was marked with spinal needle and suture passer passed through. The abdomen insufflated to pressure of 8. Vicryl was carefully pulled up with mesh. Four stab wounds were made in the four quadrants pulling up the transfascial 0 Ethibond that were tied securing the mesh in four quadrants transfascially in a nice flat tension free manner. Once this was accomplished the CapSure Tacker was used to tack about a centimeter apart around the periphery of the mesh, nice and flat with good overlap in all directions. A couple extra tacks were placed centrally to reduce the risk of seroma formation. At this point the mesh is nice and flat, in good position. There were no immediate complications. Pneumoperitoneum decompressed. Tacked the redundant tissue with the hernia sac back down to the level of the fascia. Subcu closed 3-0 Vicryl. Skin closed with 4-0 Vicryl. 0.25% Marcaine local had been injected along the fascia along the skin incisions. Skin incision closed with 4-0 Vicryl and port site closed with 4-0 Vicryl. Steri-Strips and sterile dressing applied. There were no immediate complications. There is no family here available to discuss the findings with. He tolerated the procedure well. There were no immediate complications. He was transferred to the recovery room in stable condition. He will follow up in the office. As next Wednesday is , I can see him in the [place] office next Wednesday [place].
== END 2019-11-20 18:11 | disposition home or self-care (01) ==
LOC: SDC 13:12
PROVIDERS: ATTEND Surgery
DX: K43.6 Other and unspecified ventral hernia with obstruction, without gangrene (principal); K76.9 Liver disease, unspecified; Z86.19 Personal history of other infectious and parasitic diseases; Z85.47 Personal history of malignant neoplasm of testis; Z79.899 Other long term (current) drug therapy
CPT/HCPCS: 49653; 80307; 81001; 87086; C1781; J0330; J0690; J2250; J2270; J2704; J3010